=== PATIENT | female | born 1955 | race Caucasian/White ===

== ENCOUNTER 2019-11-21 09:17 | Outpatient (CLI) | payer BC, SELFPAY ==
--- NOTE | ~2019-11-21 | MM_ITS ---
EXAMINATION: MM screening [facility] BI w marlys HISTORY: Screening mammogram TECHNIQUE: Craniocaudal and mediolateral oblique 3-D tomosynthesis images were obtained and synthetic 2-D images were generated. CAD analysis was submitted and interpreted. COMPARISON: 12/03/2018, 11/30/2017, 11/17/2016 bilateral digital screening mammogram examinations BREAST PARENCHYMAL COMPOSITION: The breasts are extremely dense, which lowers the sensitivity of mamm ography. FINDINGS: There is no evidence of suspicious mass, calcification, or architectural distortion to sugg est malignancy in either breast. There has been no suspicious interval change. IMPRESSION: 1. No mammographic evidence of malignancy. 2. Recommend routine screening mammography in one year. BI-RADS Category 1: Negative Reviewed, dictated and finalized at location A. NSIC IDENTIFICATION SPECIALIST
== END 2019-11-21 09:18 | disposition home or self-care (01) ==
LOC: ANHIMG 09:25
DX: Z12.31 Encounter for screening mammogram for malignant neoplasm of breast (principal)
CPT/HCPCS: 77063; 77067

== ENCOUNTER 2020-12-03 07:08 | Outpatient (CLI) | payer BC, SELFPAY ==
--- NOTE | ~2020-12-03 | MM_ITS ---
EXAMINATION: MM screening [facility] BI w marlys HISTORY: Screening mammogram TECHNIQUE: Craniocaudal and mediolateral oblique 3-D tomosynthesis images were obtained and synthetic 2-D images were generated. CAD analysis was submitted and interpreted. COMPARISON: 11/21/2018, 11/22/2018, 11/30/2017 BREAST PARENCHYMAL COMPOSITION: The breasts are heterogeneously dense, which may obscure small masses . FINDINGS: RIGHT BREAST: There is no evidence of suspicious mass, calcification, or architectural distortion to suggest malignancy. There has been no significant interval change. LEFT BREAST: An asymmetry is present in the posterior third of the slightly upper breast 5.5 cm from the nipple on the mediolateral oblique view. IMPRESSION: 1. Left breast asymmetry on the mediolateral oblique view. 2. Additional mammographic views and possible breast ultrasound are recommended. BI-RADS Category 0: Incomplete: Needs additional imaging evaluation. Reviewed, dictated and finalized at location A. BONER IMPRESSION: 1. Left breast asymmetry on the mediolateral oblique view. 2. Additional mammographic views and possible breast ultrasound are recommended . BI-RADS Category 0: Incomplete: Needs additional imaging evaluation.
== END 2020-12-03 07:09 | disposition home or self-care (01) ==
PROVIDERS: Visit Provider Obstetrics & Gynecology
DX: Z12.31 Encounter for screening mammogram for malignant neoplasm of breast (principal); R92.8 Other abnormal and inconclusive findings on diagnostic imaging of breast
CPT/HCPCS: 77063; 77067

== ENCOUNTER → 2020-12-06 02:36 | Outpatient (CLI) | payer BC, SELFPAY ==
[2020-12-06 20:35] LABS: SARS-CoV-2 RNA PCR Negative
== END ==
PROVIDERS: Visit Provider Internal Medicine Gastroenterology
DX: Z01.812 Encounter for preprocedural laboratory examination (principal); Z20.822 Contact with and (suspected) exposure to COVID-19
CPT/HCPCS: C9803; U0003; U0005

== ENCOUNTER 2020-12-09 01:15 | Day surgery (SDC) | payer BC, SELFPAY ==
[2020-11-25 08:48] VITALS: BMI 19.6
--- NOTE | 2020-12-08 09:48 | P.PNAN_ITS ---
Anes - Initial Pre Proc Eval Procedure: Operation Date: 12/09/20 11:15 Proposed Procedures p Esophagogastroduodenoscopy - Alberto Layne MD Date/Time: 12/08/20 09:48 Surgeon: Alberto Layne MD Pre Op Diagnosis: NORA Patient Data Age: 64 Gender: F Height: 1.63 m Weight: 52 kg Allergies Allergy/AdvReac Type Severity Reaction Status Date / Time No Known Allergies Allergy Unverified 10/01/17 08:18 Home Medications Medication Instructions Recorded Confirmed Type No Home Medications 11/25/20 11/25/20 History Patient hx anesthesia problems: none Family hx anesthesia problems: none [facility] Social History Social History Smoking status: Never smoker Alcohol intake: never Substance use type: does not use Living arrangements: with family Spiritual care concerns: No Anes - Eval Final PreProcedure Day of Procedure 12/08/20 09:48 Patient weight: thin Heart: regular rate and rhythm Lungs: clear to auscultation and normal air movement Airway: Mallampati scale class II Neurological: alert and oriented Last oral intake: >/= 8 hours ASA classification: I Emergent: no Anesthetic plan: proceed Anesthesia type and monitoring: general GIVS and standard monitoring Informed Consent: The patient's anesthetic plan and its attendant risks and benefits were discussed with the patient/family/POA. Questions were solicited and answers provided to the satisfaction of the patient/family/POA.
[2020-12-09 10:08] VITALS: BP 162/74; PULSE 67; RESP 18; TEMP 36.6; O2SAT 99
[2020-12-09] MEDS: LACTATED RINGERS 1,000 ML 150 ML IV CONT (10:11)
--- NOTE | 2020-12-09 11:27 | PM.HPGS ---
History of Present Illness History of Present Illness Consent: Risks, benefits, and alternatives have been discussed and questions answered. Patient agrees to proceed with procedure. Chief complaint: NORA Narrative: Gunjan Riley is a 64 year old female with NORA, last colonoscopy 2016. Denies gib, not using blood thinners, denies upper gi symptoms. Review of Systems Constitutional: Constitutional: Denies headache(s) and Denies weakness Eyes: Eyes: Denies blurry vision ENT: Reports Normal hearing present, Denies headache(s) and Denies neck pain Cardiovascular: Cardiovascular: Denies chest pain and Denies dyspnea Respiratory: Respiratory: Denies dyspnea Gastrointestinal: Gastrointestinal: Reports no additional gastrointestinal complaints Genitourinary: Genitourinary: Denies dysuria Musculoskeletal: Musculoskeletal: Denies neck pain Integumentary/Breasts: Skin/Breast: Denies dry skin Neurologic: Reports Normal hearing present, Denies headache(s) and Denies weakness Psychiatric: Psychiatric: Denies anxiety Endocrine: Endocrine: Denies change in body appearance Hematologic/Lymphatic: Hematologic/Lymphatic: Denies easy bleeding Allergic/Immunologic: Allergic/Immunologic: Denies urticaria PMFSH Past Medical History Medical History (Updated 12/09/20 @ 11:28 by Alberto Layne MD) Iron deficiency anemia Social History Social History Smoking status: Never smoker Alcohol intake: never Substance use type: does not use Living arrangements: with family Spiritual care concerns: No Meds Home Medications and Allergies Home Medications Medication Instructions Recorded Confirmed Type No Home Medications 11/25/20 11/25/20 History Allergies Allergy/AdvReac Type Severity Reaction Status Date / Time No Known Allergies Allergy Unverified 10/01/17 08:18 Vital Signs Vital Signs - 24 hr 12/09/20 10:08 Temperature 97.9 F Pulse Rate 67 Respiratory Rate 18 Blood Pressure 162/74 H Pulse Oximetry 99 Exam Const: General: comfortable and no acute distress HENMT: General nose exam: Normal nares present Eyes: General: appearance normal, both eyes and all related structures Neck: Neck: no JVD Resp: Auscultation: clear to auscultation bilaterally Cardio: Rate: regular rate Rhythm: regular rhythm GI: Inspection: non-distended GI Palp: Yes Soft to palpation Skin: General skin exam: normal color Neuro: General: gait normal Speech: normal speech Extrem: General: normal to inspection Psych: Mental Status: mental status grossly normal Assessment and Plan Assessment and plan (1) Iron deficiency anemia: Code(s): D50.9 - Iron deficiency anemia, unspecified Status: Acute Assessment and Plan: egd with bx
[2020-12-09 11:42] VITALS: BP 101/57; PULSE 63; RESP 15; O2SAT 99
[2020-12-09 11:52] VITALS: BP 132/62; PULSE 66; RESP 14; O2SAT 99
[2020-12-09 12:02] VITALS: BP 148/69; PULSE 67; RESP 14; O2SAT 99
== END 2020-12-09 12:35 | disposition home or self-care (01) ==
PROVIDERS: PCP Internal Medicine Endocrinology, Diabetes & Metabolism; Visit Provider Internal Medicine Gastroenterology
PROC: 0DJ08ZZ Inspection of Upper Intestinal Tract, Via Natural or Artificial Opening Endoscopic (ICD-10-PCS; CPT 43235; principal; 2020-12-09 11:15)
DX: D50.9 Iron deficiency anemia, unspecified (principal); K29.70 Gastritis, unspecified, without bleeding
CPT/HCPCS: 43239; 87081; 88305; J2001; J2704; J7120

== ENCOUNTER 2020-12-30 13:46 | Outpatient (CLI) | payer BC, SELFPAY ==
--- NOTE | ~2020-12-30 | MM_ITS ---
EXAMINATION: MM diagnostic mammo unilat LT HISTORY: Follow-up left breast asymmetry TECHNIQUE: Additional 3-D tomosynthesis images of the left breast were performed and synthetic 2-D im ages were generated. CAD analysis was submitted and interpreted. COMPARISON: Comparison to multiple prior studies sequentially, with oldest reviewed study dated 03/2016. BREAST PARENCHYMAL COMPOSITION: The breasts are extremely dense, which lowers the sensitivity of mamm ography. FINDINGS: There are no suspicious masses, calcifications or architectural distortion in the left ranjith st to suggest malignancy. IMPRESSION: 1. No mammographic evidence for malignancy in the left breast. 2. Routine yearly screening mammogram and regular clinical breast examination are recommended. BI-RADS Category 1: Negative Reviewed, dictated and finalized at location A. IMPRESSION: 1. No mammographic evidence for malignancy in the left breast. 2. Routine yearly screening mammogram and regular clinical breast examination a re recommended. BI-RADS Category 1: Negative
== END 2020-12-30 13:47 | disposition home or self-care (01) ==
LOC: ANHIMG 14:01
PROVIDERS: Visit Provider Obstetrics & Gynecology
DX: R92.8 Other abnormal and inconclusive findings on diagnostic imaging of breast (principal)
CPT/HCPCS: 77065

== ENCOUNTER → 2021-02-11 01:54 | Outpatient (CLI) | payer BC, SELFPAY ==
[2021-02-11 19:16] LABS: SARS-CoV-2 RNA PCR Negative
== END ==
PROVIDERS: Visit Provider Internal Medicine Gastroenterology
DX: Z01.812 Encounter for preprocedural laboratory examination (principal); Z20.822 Contact with and (suspected) exposure to COVID-19
CPT/HCPCS: C9803; U0003; U0005

== ENCOUNTER 2021-02-15 01:28 | Day surgery (SDC) | payer BC, SELFPAY ==
[2021-02-03 12:49] VITALS: BMI 19.5
[2021-02-15 09:00] VITALS: BP 159/88; PULSE 69; RESP 16; TEMP 36.4; O2SAT 100
[2021-02-15] MEDS: LACTATED RINGERS 1,000 ML 150 ML IV CONT (09:03)
--- NOTE | 2021-02-15 09:26 | WPDANESEPPF ---
Anes - Initial Pre Proc Eval Procedure: Operation Date: 02/15/21 10:15 Proposed Procedures p Colonoscopy - Alberto Layne MD Date/Time: 02/15/21 09:26 Surgeon: Alberto Layne MD Pre Op Diagnosis: iron deficiency anemia Patient Data Age: 65 Gender: F Height: 5 ft 4 in Weight: 51.4 kg Last Vital Signs Temp 36.4 C L 02/15/21 09:00 Pulse 69 02/15/21 09:00 Resp 16 02/15/21 09:00 BP 159/88 H 02/15/21 09:00 Pulse Ox 100 02/15/21 09:00 Allergies Allergy/AdvReac Type Severity Reaction Status Date / Time No Known Allergies Allergy Verified 02/15/21 08:59 Home Medications Medication Instructions Recorded Confirmed Type No Home Medications 11/25/20 02/15/21 History Patient hx anesthesia problems: none Family hx anesthesia problems: none [facility] Past Medical History Medical History Iron deficiency anemia Social History Social History Smoking status: Never smoker Alcohol intake: current Substance use type: does not use Living arrangements: with family Gender identity (if verbalized by the patient): Female Spiritual care concerns: No Anes - Eval Final PreProcedure Day of Procedure 02/15/21 09:26 Patient weight: normal Heart: regular rate and rhythm Lungs: clear to auscultation Airway: Mallampati scale class II Neurological: alert and oriented Last oral intake: >/= 8 hours ASA classification: I Emergent: no Anesthetic plan: proceed Anesthesia type and monitoring: general GIVS and standard monitoring Informed Consent: The patient's anesthetic plan and its attendant risks and benefits were discussed with the patient/family/POA. Questions were solicited and answers provided to the satisfaction of the patient/family/POA.
--- NOTE | 2021-02-15 09:31 | PM.HPGS ---
History of Present Illness History of Present Illness Consent: Risks, benefits, and alternatives have been discussed and questions answered. Patient agrees to proceed with procedure. Chief complaint: iron deficiency anemia Narrative: Gunjan Riley is a 65 year old female with naldo, egd 11/2020 no major findings (only mild gastritis), 3 weeks had capsule endoscopy at [facility] and negative, here for colonoscopy (last one 2016) Review of Systems Constitutional: Constitutional: Denies headache(s) and Denies weakness Eyes: Eyes: Denies blurry vision ENT: Reports Normal hearing present, Denies headache(s) and Denies neck pain Cardiovascular: Cardiovascular: Denies chest pain and Denies dyspnea Respiratory: Respiratory: Denies dyspnea Gastrointestinal: Gastrointestinal: Reports no additional gastrointestinal complaints Genitourinary: Genitourinary: Denies dysuria Musculoskeletal: Musculoskeletal: Denies neck pain Integumentary/Breasts: Skin/Breast: Denies dry skin Neurologic: Reports Normal hearing present, Denies headache(s) and Denies weakness Psychiatric: Psychiatric: Denies anxiety Endocrine: Endocrine: Denies change in body appearance Hematologic/Lymphatic: Hematologic/Lymphatic: Denies easy bleeding Allergic/Immunologic: Allergic/Immunologic: Denies urticaria PMFSH Past Medical History Medical History Iron deficiency anemia Social History Social History Smoking status: Never smoker Alcohol intake: current Substance use type: does not use Living arrangements: with family Gender identity (if verbalized by the patient): Female Spiritual care concerns: No Meds Home Medications and Allergies Home Medications Medication Instructions Recorded Confirmed Type No Home Medications 11/25/20 02/15/21 History Allergies Allergy/AdvReac Type Severity Reaction Status Date / Time No Known Allergies Allergy Verified 02/15/21 08:59 Vital Signs Vital Signs - 24 hr 02/15/21 09:00 Temperature 97.5 F L Pulse Rate 69 Respiratory Rate 16 Blood Pressure 159/88 H Pulse Oximetry 100 Exam Const: General: comfortable and no acute distress HENMT: General nose exam: Normal nares present Eyes: General: appearance normal, both eyes and all related structures Neck: Neck: no JVD Resp: Auscultation: clear to auscultation bilaterally Cardio: Rate: regular rate Rhythm: regular rhythm GI: Inspection: non-distended GI Palp: Yes Soft to palpation Skin: General skin exam: normal color Neuro: General: gait normal Speech: normal speech Extrem: General: normal to inspection Psych: Mental Status: mental status grossly normal Assessment and Plan Assessment and plan (1) Iron deficiency anemia: Code(s): D50.9 - Iron deficiency anemia, unspecified Status: Acute Assessment and Plan: on iron pills, colonoscopy today
[2021-02-15 09:55] VITALS: BP 104/54; PULSE 74; RESP 18; O2SAT 100
[2021-02-15 10:05] VITALS: BP 122/66; PULSE 72; RESP 18; O2SAT 100
[2021-02-15 10:15] VITALS: BP 112/60; PULSE 72; RESP 16; O2SAT 100
== END 2021-02-15 10:45 | disposition home or self-care (01) ==
PROVIDERS: Visit Provider Internal Medicine Gastroenterology
PROC: 0DJD8ZZ Inspection of Lower Intestinal Tract, Via Natural or Artificial Opening Endoscopic (ICD-10-PCS; CPT 45378; principal; 2021-02-15 10:15)
DX: D50.9 Iron deficiency anemia, unspecified (principal); D12.3 Benign neoplasm of transverse colon; D12.2 Benign neoplasm of ascending colon; K64.8 Other hemorrhoids
CPT/HCPCS: 45385; 88305; J2704; J7120

== ENCOUNTER 2021-12-16 07:14 | Outpatient (CLI) | payer BC, SELFPAY ==
--- NOTE | ~2021-12-16 | MM_ITS ---
EXAMINATION: MM screening [facility] BI w marlys HISTORY: Screening TECHNIQUE: Craniocaudal and mediolateral oblique 3-D tomosynthesis images were obtained and synthetic 2-D images were generated. CAD analysis was submitted and interpreted. COMPARISON: Comparison to multiple prior studies sequentially, with oldest reviewed study dated 01/2017. BREAST PARENCHYMAL COMPOSITION: The breasts are extremely dense, which lowers the sensitivity of mamm ography. FINDINGS: There is no evidence of suspicious mass, calcification, or architectural distortion to sugg est malignancy in either breast. There has been no suspicious interval change. IMPRESSION: 1. No mammographic evidence of malignancy. 2. Recommend routine screening mammography in one year. BI-RADS Category 1: Negative Reviewed, dictated and finalized at location A. NEERING PROJECT MANAGER
== END 2021-12-16 07:15 | disposition home or self-care (01) ==
LOC: ANHIMG 07:16
PROVIDERS: Visit Provider Obstetrics & Gynecology
DX: Z12.31 Encounter for screening mammogram for malignant neoplasm of breast (principal)
CPT/HCPCS: 77063; 77067

== ENCOUNTER 2023-01-26 07:16 | Outpatient (CLI) | payer BC, SELFPAY ==
--- NOTE | ~2023-01-26 | MM_ITS ---
EXAMINATION: MM screening [facility] BI w marlys HISTORY: Screening mammogram TECHNIQUE: Craniocaudal and mediolateral oblique 3-D tomosynthesis images were obtained and synthetic 2-D images were generated. CAD analysis was submitted and interpreted. COMPARISON: 12/16/2021, 12/30/2020, 12/03/2020 BREAST PARENCHYMAL COMPOSITION: The breasts are heterogeneously dense, which may obscure small masses . FINDINGS: No suspicious mass, calcification, or architectural distortion are identified in either seth ast to suggest malignancy. There has been no suspicious interval change. IMPRESSION: 1. No mammographic evidence of malignancy. 2. Recommend routine screening mammography in one year. BI-RADS Category 1: Negative Reviewed, dictated and finalized at location A.
== END 2023-01-26 07:17 | disposition home or self-care (01) ==
PROVIDERS: Visit Provider Obstetrics & Gynecology
DX: Z12.31 Encounter for screening mammogram for malignant neoplasm of breast (principal)
CPT/HCPCS: 77063; 77067

== ENCOUNTER 2024-03-16 15:29 | Outpatient (CLI) | payer BC, SELFPAY ==
--- NOTE | ~2024-03-16 | MM_ITS ---
EXAMINATION: MM screening [facility] BI w marlys HISTORY: Screening TECHNIQUE: Craniocaudal and mediolateral oblique 3-D tomosynthesis images were obtained and synthetic 2-D images were generated. CAD analysis was submitted and interpreted. COMPARISON: Comparison to multiple prior studies sequentially, with oldest reviewed study dated 2018. BREAST PARENCHYMAL COMPOSITION: Dense: The breasts are heterogeneously dense, which may obscure small masses FINDINGS: There is no evidence of suspicious mass, calcification, or architectural distortion to sugg est malignancy in either breast. There has been no suspicious interval change. IMPRESSION: 1. No mammographic evidence of malignancy. 2. Recommend routine screening mammography in one year. BI-RADS Category 1: Negative Reviewed, dictated and finalized at location B.
== END 2024-03-16 15:30 | disposition home or self-care (01) ==
LOC: ANHIMG 15:37
PROVIDERS: PCP Internal Medicine Infectious Disease; Visit Provider Obstetrics & Gynecology
DX: Z12.31 Encounter for screening mammogram for malignant neoplasm of breast (principal)
CPT/HCPCS: 77063; 77067

== ENCOUNTER 2025-04-22 16:03 | Outpatient (CLI) | payer BC, SELFPAY ==
--- NOTE | ~2025-04-22 | MM_ITS ---
EXAMINATION: MM screening [facility] BI w marlys HISTORY: Screening mammogram TECHNIQUE: Craniocaudal and mediolateral oblique 3-D tomosynthesis images were obtained and synthetic 2-D images were generated. CAD analysis was submitted and interpreted. COMPARISON: 03/16/2024, 01/26/2023, 12/16/2021, 12/30/2020 BREAST PARENCHYMAL COMPOSITION:Dense: The breasts are extremely dense, which lowers the sensitivity o f mammography. FINDINGS: No suspicious mass, calcification, or architectural distortion are identified in either seth ast to suggest malignancy. There has been no suspicious interval change. IMPRESSION: No mammographic evidence of malignancy. Recommend routine screening mammography in one year. BI-RADS Category 1: Negative Reviewed, dictated and finalized at location .
--- OUTSIDE RECORDS SUMMARY | 2025-04-22 16:17 | XMS_ITS | Encounter Summary ---
Author Organization [facility] Healthcare Address [address] [place] [address] Care Team Providers Care Educational Assistant Teacher Name Role Phone Niels Desai MD Primary Care Provider [phone] Sonya Burns MD Unavailable [phone] Ericka Ibrahim MD Unavailable [phone] Encounter Details Date Type Department Care Team (Late st Contact Info) Description 03/26/2025 Telephone [facility] [address] [place] [address] Niels Desai MD [address] [facility] [address] [place] [address] Social History Tobacco Use Types Packs/Day Years Used Date Smoking Tobacco: Never Smokeless Tobacco: Never Alcohol Use Standard Drinks/Week Comments Yes 0 (1 standard drink = 0.6 oz pur e alcohol) AUDIT-C Answer Date Recorded Q1: How often do you have a drink containing alc ohol? Monthly or less 05/16/2023 Q2: How many drinks containi ng alcohol do you have on a typical day when you are drinking? 1 or 2 05/16/2023 Q3: How often do you have si x or more drinks on one occasion? 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 Gender Identity Not on file Sexual Orientation Not on file Occupation Industry Job Start Date Job End Date [employer] Not on file Not on file Not on file documented as of this encounter Ordered Prescriptions Prescription Sig Dispense Quantity Refills Last Filled Start Date End Date NIFEdipine (NIFEdipine XL) 60 mg 24 hr tabletIndications:A ccelerated hypertension Take 1 tablet (60 mg total) by mouth daily 90 tablet 3 03/26/2025 documented in this encounter Miscellaneous Notes * Telephone Encounter - Niels Desai MD - 03/26/2025 5:23 PM CDT See patient's Dimple [employer] message regarding refill for nifedipine XL 60 mg daily, 90 tablets, one daily. Sent to her pharmacy. documented in this encounter Plan of Treatment Not on file documented as of this encounter Visit Diagnoses Diagnosis Accelerated hypertension Essential hypertension, malignant documented in this encounter Discontinued Medications Medication Sig Discontinue Reason Start Date End Da te NIFEdipine (NIFEdipine XL) 60 mg 24 hr tabletIndications:Acceler ated hypertension Take 1 tablet (60 mg total) by mouth daily Reorder 02/26/2025 03/26/2025 documented as of this encounter Care Teams Educational Assistant Teacher Relationship Specialty Start Date End Date Niels Desai MD [address] [place] [address] [place] [id number] PCP - General Internal Medicine 05/02/23 Sonya Burns MD [address] [facility] [address] [place] [address] Consulting Physician Obstetrics and Gynecology 09/25/13 Ericka Ibrahim MD [address] [facility] [address] [place] [address] Consulting Physician Dermatology 07/14/19 documented as of this encounter
--- OUTSIDE RECORDS SUMMARY | 2025-04-22 16:17 | XMS_ITS | Clinical Summary ---
Author Organization [facility] Address [address] [place] [address] Care Team Providers Care Engineer Byproduct Name Role Phone Unavailable Primary Care Provider Unavailabl e Social History Tobacco Use Types Packs/Day Years Used Date Smoking Tobacco: Never Assessed Comments Unknown Sex and Gender Information Value Date Recorded Sex Assigned at Not on file Legal Sex Female 8:15 PM CDT Gender Identity Not on file Sexual Orientation Not on file Plan of Treatment Health Maintenance Due Date Last Done Comments Colorectal Cancer Screening Colonoscopy (10 Years) 1956 Hepatitis C 1974 DTaP, Tdap and Td Vaccines ( 1 - Tdap) 12/14/1975 Mammogram Screening 1996 Pneumococcal Vaccine: 50+ Ye ars (1 of 1 - PCV) 2006 Zoster Vaccines (1 of 2) 2006 Dexa Scan (General) 2021 COVID-19 Vaccine (2023-2 5 season) 2024 RSV Immunization or 60+ Years (1 - 1-dose 75+ series) 12/14/2031 Meningococcal B Vaccine Aged Out No l onger eligible based on patient's age to complete this topic Meningococcal Vaccine Aged Out No yony yoel eligible based on patient's age to complete this topic RSV Immunizations Under 20 Months Aged Out No longer eligible based on patient's age to complete this topic
--- OUTSIDE RECORDS SUMMARY | 2025-04-22 16:17 | XMS_ITS | Referral Summary ---
Author Organization [facility] Address [address] [place] [address] Care Team Providers Care Business Operations Coordinator Name Role Phone Chandler Goldman MD Primary Care Provider [phone] Sonya Burns MD Unavailable Ericka Ibrahim MD Unavailable [phone] Encounters Date Type Department Care Team Description 03/26/2025 Telephone [facility] [address] [place] [address] Chandler Goldman MD 03/19/2025 Results Follow-Up [facility] [address] [place] [address] Chandler Goldman MD Transthoracic Echo (TTE) Complete W Doppler/CF 03/19/2025 6:55 AM CDT - 03/19/2025 11:59 PM CDT Hospital Encounter [facility] [address] [place] [id number] Nonrheumatic mitral valve regurgitation Discharge Disposition: Discharge to home or self care 03/09/2025 Telephone [facility] [address] [place] [address] Sarah Suárez, RN 03/07/2025 Results Follow-Up [facility] [address] [place] [address] Chandler Goldman MD Renal Limited Including Duplex Doppler Bilateral Complete (C) 03/05/2025 1:14 PM CDT - 03/05/2025 11:59 PM CDT Hospital Encounter [facility] ([facility]) [address] [place] [id number] Accelerated hypertension; Abdominal bruit Discharge Disposition: Discharge to home or self care 03/04/2025 Telephone [facility] [address] [place] [address] Chandler Goldman MD 02/26/2025 Telephone [facility] [address] [place] [address] Chandler Goldman MD 02/24/2025 11:30 AM CDT Office Visit [facility] [address] [place] [address] Chandler Goldman MD Accelerated hypertension (Primary Dx); White coat syndrome without diagnosis of hypertension; Abdominal bruit 02/22/2025 Telephone [facility] [address] [place] [address] Chandler Goldman MD 01/22/2025 2:59 PM CDT - 01/22/2025 11:59 PM CDT Hospital Encounter [facility] [address] [place] [address] [address] [place] [address] Screening for osteoporosis; Post-menopausal Discharge Disposition: Discharge to home or self care from Last 3 Months Allergies No known active allergies Medications cholecalciferol (VITAMIN D3) 2,000 unit tablet 0 0 4 Active ascorbic acid (VITAMIN C) 1,000 mg tablet Acti ve vitamins A,C,G-elwg-urpqa r (ICAPS) [id number] vlvy-bu-fukj capsule Take by mouth Active zinc 50 mg tablet Take by mouth Active iron, carbonyl (FEOSOL) 45 mg tablet Take 0.283 tablets (45 mg total) by mouth daily Active diclofenac sodium 1.5 % dropsIndications :Osteoarthritis Apply 3-5 drops topically daily as needed (Joint pain) 150 mL 1 3 Active NIFEdipine (NIFEdipine XL) 60 mg 24 hr tabletIndication s:Accelerated hypertension Take 1 tablet (60 mg total) by mouth daily 90 tablet 3 5 Active NIFEdipine (NIFEdipine XL) 60 mg 24 hr tabletIndication s:Accelerated hypertension Take 1 tablet (60 mg total) by mouth daily 30 tablet 5 5 03/26/20 25 Discontin ued(Reord er) Active Problems Problem Noted Date Diagnosed Date Nonrheumatic mitral valve regurgitation 03/09/20 25 Overview (03/09/2025): Dates and details lacking. Accelerated hypertension 02/24/2025 Assessment & Plan (02/28/2025 4:41 PM CDT): New problem as of a day or two ago, she reports that blood pressure during a visit to occupational health for respiratory fit testing was 180 systolic. They referred her to our office to get things under control. She does have a history of white coat hypertension, see discussion elsewhere, but lately has noticed that blood pressure in general has been creeping up at home on her own blood pressure readings. There was also concern about possible renal artery bruit audible at her occupational health visit. She reports having renal artery Dopplers nearly 10 years ago in 2014 and was able to access the report in her MyChart, even though it does not appear in the current EMR application. At that time there was no evidence of renal artery stenosis. On exam, she does have a faint bruit in the mid to upper abdomen, very short. It is probably due to turbulent flow through the aorta. On auscultation of the back, no renal artery bruits are audible. We ordered follow-up renal artery Dopplers to re-evaluate. Blood pressure readings in the office are moderately to severely elevated, initially 170/84. On my reading in each arm blood pressure is 220/100. She denies chest pain or pressure. Lungs are clear. Heart rhythm is regular with no murmur. There is no edema in her legs. We gave her clonidine 0.1 mg p.o. and after 20 minutes, blood pressure was about 190/100. After another 20 minutes, blood pressure was 166/78. The patient had no reported side effects from the clonidine. We recommended that she start nifedipine XL 30 mg daily and monitor blood pressure at home. Call in two days with readings. Low bone density 01/22/2025 Assessment & Plan (02/24/2025 5:55 AM CDT): Chronic, present for 6-7 years. Recommend continuing vitamin-D supplement and getting adequate calcium in her diet. FRAX score on most recent DEXA from about one month ago is 11% and 2.1% for major osteoporotic fracture and hip fracture respectively. Positive ALFREDO (antinuclear antibody) 10/02/2024 Assessment & Plan (11/08/2024 4:50 AM RECORD TESTER): New finding as of about a month ago, uncertain significance. She has a low titer positive ALFREDO with a speckled pattern. Anti double-stranded DNA is negative. She has no symptoms suggestive of autoimmunity, but did have a low WBC, so there could be a connection there. We ordered a follow-up CBC to be done in about a month. Lab Results Component Value Date ALFREDO POSITIVE (A) 10/02/2024 ALFREDO 1:80 (H) 10/02/2024 ALFREDO pattern Speckled Macrocytosis without anemia 09/16/2024 Assessment & Plan (11/08/2024 4:49 AM RECORD TESTER): New finding as of about a month ago on routine labs. The cause and significance are undetermined. She denies significant alcohol use. There are no other known toxin exposures. It could be a transient abnormality or something related to nutritional deficiency or a low-grade bone marrow disorder. For now we are planning to monitor with periodic labs to see if there is persistence or progression. Lab Results Component Value Date WBC 3.4 (L) 10/02/2024 HGB 13.9 10/02/2024 HCT 40.9 10/02/2024 MCV 100.5 (H) 10/02/2024 LABPLAT 250 10/02/2024 Lab Results Component Value Date VITB12 419 10/02/2024 Lab Results Component Value Date TSH 2.68 09/16/2024 Lab Results Component Value Date ALT 16 09/16/2024 AST 18 09/16/2024 ALKPHOS 77 09/16/2024 BILITOT 0.5 09/16/2024 Assessment & Plan (09/28/2024 5:06 PM RECORD TESTER): New finding as of recent labs, uncertain cause or significance. Hemoglobin is well within normal limits. TSH was normal. She denies alcohol use for at least two years. We ordered a B12 level. Other evaluation may be appropriate. Abnormal gamma globulin level 09/16/2024 Overview (09/28/2024): Borderline low. Assessment & Plan (11/08/2024 4:48 AM RECORD TESTER): New finding as of about six weeks ago, the globulin fraction on a CMP was low, uncertain cause or significance. We ordered quantitative immunoglobulins which were normal (IgG, IgA, IgM). We ordered a follow-up comprehensive panel to be done in about one month to see if there are any trends. Assessment & Plan (09/28/2024 5:04 PM RECORD TESTER): New finding as of recent lab work, uncertain cause and significance. We ordered quantitative immunoglobulins to start with. A serum protein electrophoresis may also be appropriate. Return early as needed depending on findings. Leukopenia 09/16/2024 Assessment & Plan (10/30/2024 4:46 PM RECORD TESTER): New finding as of about six weeks ago, confirmed on repeat CBC. She had a positive ALFREDO 1:80 speckled, significance not determined. We ordered a follow-up CBC to be done in about one month to see the abnormalities are transient, possibly related to a sinus infection that she had in August about a month before the CBC was drawn. Assessment & Plan (10/03/2024 6:40 AM RECORD TESTER): New finding as of recent lab work. Uncertain cause or significance. It could be due to a transient viral infection, autoimmunity, bone marrow disorder, or other causes. She has a mild to moderate facial rubor. We ordered a repeat CBC and an ALFREDO screen. Return early as needed. Enlargement of right sternoclavicular joint 06/14 Overview (09/25/2023): Sternoclavicular dislocation/subluxation per patient's orthopedic surgeon. Assessment & Plan (09/25/2023 5:49 PM RECORD TESTER): She saw her orthopedic surgeon who diagnosed a dislocation/subluxation of the right sternoclavicular joint. It is asymptomatic and unchanged. Orthopedics did not recommend any intervention. We will monitor clinically. Assessment & Plan (07/18/2023 3:22 PM CDT): She first noticed some swelling in the right sternoclavicular joint about three weeks ago. There is no recent history of injury. She has no discomfort in this area. Exam shows no deformity, warmth or crepitus with movement. The joint appears to be mildly hypertrophied. There is moderate associated soft tissue swelling, but no redness or tenderness. We ordered imaging including plain x-ray and ultrasound. Return early as needed. Multiple benign melanocytic nevi of upper and lower extremities and trunk 04/13/2022 Basal cell carcinoma (BCC) of right lower leg Overview (05/03/2023): Actinic keratosis, right lateral lower leg and basal cell carcinoma, right medial lower leg, both excised. Seborrheic keratosis 04/13/2022 Solar lentiginosis 04/13/2022 Telangiectasia 04/13/2022 CKD (chronic kidney disease) stage 2, GFR 60-89 ml/min 04/13/2020 Overview (05/03/2023): Upper limit of normal to mildly elevated creatinine, eGFR 60-80 mL/minute. Assessment & Plan (09/25/2023 5:48 PM RECORD TESTER): Kidney function is stable. We will see her back annually, or sooner if needed. Lab Results Component Value Date GLUCOSE 80 09/13/2023 CALCIUM 9.4 09/13/2023 SODIUM 141 09/13/2023 POTASSIUM 4.6 09/13/2023 CO2 28 09/13/2023 CHLORIDE 104 09/13/2023 BUNSER 23 09/13/2023 CREATININE 0.90 09/13/2023 Assessment & Plan (05/18/2023 1:31 PM CDT): A borderline to mildly elevated creatinine has been noted for many years. Estimated GFR is 60 80 mL/minute. We will continue to monitor with periodic labs. Consider additional evaluation as needed, but she has had considerable previous workup including urinalysis last year, multiple imaging studies of the abdomen/pelvis in relation to ovarian cyst and presacral schwannoma, so there is no urgent need for additional evaluation at this time. White coat syndrome without diagnosis of hyperte nsion 04/13/2020 Assessment & Plan (02/24/2025 5:22 PM CDT): Chronic, present for about five years, possibly contributing to the current accelerated hypertension. In the past, home blood pressure readings have been acceptable, but more recently home blood pressure readings have been borderline to mildly elevated. We recommended a trial of a beta-halle which she declines because it will interfere with exercise tolerance. In the past, she took amlodipine but it did not work at a 10 mg dose, so we sent in nifedipine XL, 30 mg daily and asked her to call us in two days with blood pressure readings. Assessment & Plan (09/28/2024 5:08 PM RECORD TESTER): Chronic, present for over four years. She brought in blood pressure readings from home which are well within normal limits. We will continue to monitor without specific intervention. Assessment & Plan (09/25/2023 5:51 PM RECORD TESTER): Blood pressure is in a good range. She stays very active, runs regularly. Recent labs are stable. We will see her back annually. Lab Results Component Value Date CHOL 172 09/13/2023 Lab Results Component Value Date HDL 84 09/13/2023 Lab Results Component Value Date LDL 72 09/13/2023 Lab Results Component Value Date TRIG 80 09/13/2023 Lab Results Component Value Date GLUCOSE 80 09/13/2023 CALCIUM 9.4 09/13/2023 SODIUM 141 09/13/2023 POTASSIUM 4.6 09/13/2023 CO2 28 09/13/2023 CHLORIDE 104 09/13/2023 BUNSER 23 09/13/2023 CREATININE 0.90 09/13/2023 Lab Results Component Value Date ALT 17 09/13/2023 AST 18 09/13/2023 ALKPHOS 70 09/13/2023 BILITOT 0.3 09/13/2023 Assessment & Plan (05/03/2023 6:02 PM CDT): She gets anxious coming to doctors. Initial systolic blood pressure in the office today was moderately elevated, but she checks blood pressure regularly at home and typically gets between 110-125 mm Hg systolic over 60-70 mm Hg diastolic which is certainly acceptable. Osteoarthrosis 10/01/2014 Overview (12/08/2021): Osteoarthritis Osteoarthritis Assessment & Plan (09/25/2023 5:50 PM RECORD TESTER): Mostly she has left knee pain from a prior injury. She rubs diclofenac drops on the knee a few times a month which keeps things under control. Seasonal allergies 03/18/2013 Overview (05/03/2023): Takes OTC nonsedating antihistamines as needed. Assessment & Plan (05/03/2023 6:01 PM CDT): She has mild seasonal allergies that responds well to OTC antihistamines taken as needed. 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 Assessment & Plan (09/28/2024 5:07 PM RECORD TESTER): Chronic, present for more than 10 years, monitored with periodic imaging. She reports that her last MRI was stable. She will keep her followups with her specialists. Assessment & Plan (09/25/2023 5:50 PM RECORD TESTER): The presacral schwannoma was stable as of recent imaging. Her neurologist plans to see her back in a year. 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 Fibrocystic breast disease (FCBD) 09/12/2000 Resolved Problems Problem Noted Date Diagnosed Date Resolved Date Upper respiratory infection 08/04/2024 10/30/2024 Overview (10/30/2024): Empirically treated with Z-Gaston per patient request. Verruca vulgaris 10/03/2011 05/03/2023 Overview (05/03/2023): Treated by her franchise broker. Microscopic hematuria 10/12/20082022 Overview (05/03/2023): Runner's hematuria, resolved with lower mileage. 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 Patient is unaware of any such history. Mitral valve disorder 09/15/20012022 Overview (05/03/2023): Had an echo, had mitral valve prolapse, details lacking. Since then no one heard anything. Other depressive disorder 05/22/2001 Overview (05/03/2023): Patient denies. Immunizations Immunization Administration Dates Next Due Flucelvax Influenza Quad 10/03/2017 Hep A / Hep B 02/22/2012,08/31/2011,01/15/2011 Influenza, Quad, Adjuvantate d, Intramuscular 07/28/2023,08/04/2022 Influenza, Quadrivalent, Rec ombinant, Egg Free, Preservative Free, Intramuscular 08/20/2021 Influenza, Quadrivalent, Spl it, Preservative Free, Intramuscular 08/12/2020 Influenza, Trivalent, High D ose, Split, Preservative Free, Intramuscular 08/23/2024 Influenza, Trivalent, IM (MDV) 07/24/2014,2012,10/20/2012 Influenza, Trivalent, Preser vative Free, Intramuscular 07/29/2016,08/14/2015 Influenza, Unspecified 07/28/2023 MMR 12/26/2024 Pneumococcal Conjugate Pcv20 05/03/2023 Polio, Unspecified 01/15/2011 Sars-cov-2 Covid-19 Mrna, Bi valent, Original/marbella Ba.1, A 07/28/2023 Tdap 05/03/2023 ZOSTER Recombinant 10/16/2023,08/04/2023, 023 Social History Tobacco Use Types Packs/Day Years Used Date Smoking Tobacco: Never Smokeless Tobacco: Never Tobacco Cessation:Counseling Given: Not Answered Alcohol Use Standard Drinks/Week Comments Yes 0 [...] on file Legal Sex Female 1:12 AM RECORD TESTER Gender Identity Not on file Sexual Orientation Not on file 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 Not on file Not on file Not on file Last Filed Vital Signs Vital Sign Reading Time Taken Comments Blood Pressure 170/84 02/24/2025 11:22 AM CDT Pulse 81 02/24/2025 11:22 AM CDT Temperature 36.5 C (97.7 F) 02/24/2025 11:22 AM CDT Respiratory Rate 16 02/24/2025 11:22 AM CDT Oxygen Saturation 99% 02/24/2025 11:22 AM CDT Inhaled Oxygen Concentration - - Weight 52.3 kg (115 lb 6.4 oz) 02/24/2025 11:22 AM CDT Height 162.6 cm (5' 4.02) 02/24/2025 11:22 AM C DT Body Mass Index 19.8 02/24/2025 11:22 AM CDT Plan of Treatment Not on file Procedures Procedure Name Priority Date/Time Associated Diagnosis Comments TRANSTHORACIC ECHO (TTE) COMPLETE W DOPPLER/CF WO CONTRAST Routine 03/19/2025 7:54 AM CDT Nonrheumatic mitral valve regurgitation US RENAL LIMITED INCLUDING DUPLEX DOPPLER BILATERAL COMPLETE (C) Schedule Routine, Read Routine (OP Routine) 03/05/2025 2:39 PM CDT Accelerated hypertension Abdominal bruit DEXA AXIAL SKELETON BONE DENSITY 1 OR MORE SITES Schedule Routine, Read Routine (OP Routine) 01/22/2025 3:23 PM CDT Screening for osteoporosis Post-menopausal HEPATITIS C ANTIBODY Routine 10/02/2024 6:58 AM RECORD TESTER Need for hepatitis C screening test HM MAMMOGRAPHY Routine 01/26/2023 from Last 3 Months or Most Recently Relevant to Health Maintenance Results * TRANSTHORACIC ECHO (TTE) COMPLETE W DOPPLER/CF WO CONTRAST (03/19/2025 7:54 AM CDT) EF Mod BP 64 % CONS SCIMAGE Anatomical Region Laterality Modality Ultrasound 03/19/2025 7:01 AM CDT Narrative 03/19/2025 8:22 AM CDT [facility] [place] [address] Transthoracic Echocardiographic Report Patient Name: KOMAL RILEYA Chandni : 1955 (69y 3m) Gender: F Study Date: 03/19/2025 07:01:01 AM Ht(Inch): 64 Wt(Lb): 115.08 BSA: 1.54 Sink Cutter: KAYDEN Flaherty RDCS Location: [facility] Order Provider: CHANDLER GOLDMAN Heart Rate: 69 BMI: 19.75 BP: 146 / 60 Ref Provider: CHANDLER GOLDMAN PROCEDURES: Echocardiographic Report: Transthoracic complete echo with strain imaging, 2D, spectral and tissue Doppler, color flow Doppler, M-mode. INDICATIONS: I34.0 Nonrheumatic mitral (valve) insufficiency. CONCLUSIONS: 1. Normal left ventricular size based on volume index. Normal LV wall thickness. Normal left ventricular systolic function. The Ejection Fraction (Dacosta's) is measured at 64 %. Normal diastolic function. The average global longitudinal strain is normal. 2. Normal right ventricular size. Normal right ventricular systolic function. TV S'=0.13 m/s (normal function). 3. Mild anterior leaflet MVP with MR. 4. The estimated pulmonary artery systolic pressure is 20.0 mmHg. No pulm HTN. ATTESTATION: I have personally reviewed and interpreted this study without fellow or resident. - DISCLAIMER: The study images and the final report will be retained in the patient chart by the Echo Laboratory for the legally required time period. This chart constitutes the legal record of any testing performed. FINDINGS: Left Ventricle: Normal left ventricular size based on volume index. Normal LV wall thickness. Normal left ventricular systolic function. The Ejection Fraction (Dacosta's) is measured at 64 %. Normal diastolic function. The average global longitudinal strain is normal. The LV global strain is: -22.0 %. Right Ventricle: Normal right ventricular size. Normal right ventricular systolic function. TV S'=0.13 m/s (normal function). Left Atrium: The left atrium is normal in size. Right Atrium: The right atrium is normal in size. Mitral Valve: Normal mitral valve structure. The mean transmitral gradient is: 1 mmHg. Mild anterior leaflet MVP with MR. Aortic Valve: Normal trileaflet aortic valve. No aortic regurgitation. The mean transaortic gradient is 6 mmHg. The aortic valve area by the continuity equation (using VTI) is 2.32 cm2. Aortic valve dimensionless index is 0.89. Tricuspid Valve: Normal tricuspid valve structure. Mild tricuspid regurgitation. The estimated pulmonary artery systolic pressure is 20.0 mmHg. No pulm HTN. Pulmonic Valve: Normal pulmonic valve structure. No pulmonic regurgitation. Pericardium: Normal pericardium without pericardial effusion. Aorta: Normal aortic root. Normal aortic root size at sinuses of Valsalva. Normal aortic root size when indexed. The ascending aorta is normal in size when indexed. IVC: IVC is normal in size. MEASUREMENTS: 2D/MM Value Range Doppler Value Range LVIDd 2D 4.27 cm [ 3.80 - 5.20 ] AV Peak Henry 1.7 m/s [ 1.0 - 1.7 ] LVIDs 2D 1.95 cm [ 2.20 - 3.50 ] AV Peak PG 11.56 mmHg IVSd 2D 0.80 cm [ 0.60 - 0.90 ] AV Mean PG 6 mmHg LVPWd 2D 0.84 cm [ 0.60 - 0.90 ] AV VTI 32.7 cm LV Thickness Ratio 1.0 LVOT Peak Henry 1.6 m/s [ 0.7 - 1.1 ] LV FS 2D 54.28 % [ 27.00 - 45.00 ] LVOT Peak PG 10.24 mmHg LV Mass 2D 110.06 g LVOT Mean PG 5 mmHg LV Mass Index 2D 71.47 g/m2 LVOT VTI 29.2 cm RWT 0.39 LVOT Diam 1.82 cm EDV Mod BP 65.84 ml [ 46.00 - 106.00 ] MAGDALENO VTI 2.32 cm2 LV EDV Index 42.75 ml/m2 LVOT/AV VTI 0.89 - Dimensionless index (DVI) ESV Mod BP 23.44 ml [ 14.00 - 42.00 ] MV E Peak Henry 0.8 m/s [ 0.6 - 1.3 ] EF Mod BP 64 % [ 54 - 74 ] MV A Peak Henry 0.7 m/s [ 1.0 - 1.2 ] LV GLS -22.0 % [ -25.0 - -18.0 ] MV E/A 1.2 ratio [ 0.8 - 1.5 ] LA Length 4C 5.28 cm MV Peak Henry 0.9 m/s LA Length 2C 4.62 cm MV Peak PG 3.24 mmHg LA Volume BP 51.66 ml MV Mean PG 1 mmHg LA Volume Index 33.55 ml/m2 [ 16.00 - 34.00 ] MV VTI 25.4 cm RV Base Dimen 2D 3.0 cm [ 2.5 - 4.2 ] MV Decel Time 207.47 msec [ 104.00 - 258.00 ] TAPSE 2.09 cm [ 1.71 - 5.00 ] Med E` Henry 9.2 cm/sec [ 8.0 - 25.0 ] RA Volume 25.00 ml Lat E` Henry 8.8 cm/sec [ 10.0 - 25.0 ] RA Volume Index 16.23 ml/m2 Average E/E` 8.89 AoR Diam 2D 2.72 cm [ 2.70 - 3.70 ] RV S` 13.39 cm/sec Ao Root Index 1.77 cm/m2 [ 1.00 - 2.00 ] PV Peak Henry 1.4 m/s [ 0.4 - 0.8 ] Asc Ao Diam 2D 2.66 cm PV Peak PG 7.84 mmHg Asc Ao Index 1.73 cm/m2 Electronically Signed By: Zay Kidd M.D. 03/19/2025 8:21:25 AM CDT Procedure Note Zay Kidd MD PhD - 03/19/2025 [facility] [place] [place] [address] Transthoracic Echocardiographic Report Patient Name: GUNJAN RILEY K : 1955 (69y 3m) Gender: F Study Date: 03/19/2025 07:01:01 AM Ht(Inch): 64 Wt(Lb): 115.08 BSA: 1.54 Sink Cutter: Zachariah Chao [facility] Location: [facility] Order Provider:CHANDLER GOLDMAN Heart Rate: 69 BMI: 19.75 BP: 146 / 60 Ref Provider: CHANDLER GOLDMAN PROCEDURES: Echocardiographic Report: Transthoracic complete echo with strain imaging,2D, spectral and tissue Doppler, color flow Doppler, M-mode. INDICATIONS: I34.0 Nonrheumatic mitral (valve) insufficiency. CONCLUSIONS: 1. Normal left ventricular size based on volume index. Normal LV wallthickness. Normal left ventricular systolic function. The Ejection Fraction (Dacosta's) ismeasured at 64 %. Normal diastolic function. The average global longitudinal strain isnormal. 2. Normal right ventricular size. Normal right ventricular systolicfunction. TV S'=0.13 m/s (normal function). 3. Mild anterior leaflet MVP with MR. 4. The estimated pulmonary artery systolic pressure is 20.0 mmHg. No pulmHTN. ATTESTATION: I have personally reviewed and interpreted this study without fellow orresident. - DISCLAIMER: The study images and the final report will be retained in the patientchart by the [facility] Laboratory for the legally required time period. This chart constitutesthe legal record of any testing performed. FINDINGS: Left Ventricle: Normal left ventricular size based on volume index. NormalLV wall thickness. Normal left ventricular systolic function. The EjectionFraction (Dacosta's) is measured at 64 %. Normal diastolic function. The average globallongitudinal strain is normal. The LV global strain is: -22.0 %. Right Ventricle: Normal right ventricular size. Normal right ventricularsystolic function. TV S'=0.13 m/s (normal function). Left Atrium: The left atrium is normal in size. Right Atrium: The right atrium is normal in size. Mitral Valve: Normal mitral valve structure. The mean transmitral gradientis: 1 mmHg. Mild anterior leaflet MVP with MR. Aortic Valve: Normal trileaflet aortic valve. No aortic regurgitation. Themean transaortic gradient is 6 mmHg. The aortic valve area by the continuityequation (using VTI) is 2.32 cm2. Aortic valve dimensionless index is 0.89. Tricuspid Valve: Normal tricuspid valve structure. Mild tricuspidregurgitation. The estimated pulmonary artery systolic pressure is 20.0 mmHg. No pulm HTN. Pulmonic Valve: Normal pulmonic valve structure. No pulmonicregurgitation. Pericardium: Normal pericardium without pericardial effusion. Aorta: Normal aortic root. Normal aortic root size at sinuses of Valsalva.Normal aortic root size when indexed. The ascending aorta is normal in size whenindexed. IVC: IVC is normal in size. MEASUREMENTS: 2D/MM Value Range DopplerValue Range LVIDd 2D 4.27 cm [ 3.80 - 5.20 ] AV Peak Vel1.7 m/s [ 1.0 - 1.7 ] LVIDs 2D 1.95 cm [ 2.20 - 3.50 ] AV Peak PG11.56 mmHg IVSd 2D 0.80 cm [ 0.60 - 0.90 ] AV Mean PG6 mmHg LVPWd 2D 0.84 cm [ 0.60 - 0.90 ] AV VTI32.7 cm LV Thickness Ratio 1.0 LVOT Peak Vel1.6 m/s [ 0.7 - 1.1 ] LV FS 2D 54.28 % [ 27.00 - 45.00 ] LVOT Peak PG10.24 mmHg LV Mass 2D 110.06 g LVOT Mean PG5 mmHg LV Mass Index 2D 71.47 g/m2 LVOT VTI29.2 cm RWT 0.39 LVOT Diam1.82 cm EDV Mod BP 65.84 ml [ 46.00 - 106.00 ] MAGDALENO VTI2.32 cm2 LV EDV Index 42.75 ml/m2 LVOT/AV VTI0.89 - Dimensionless index (DVI) ESV Mod BP 23.44 ml [ 14.00 - 42.00 ] MV E Peak Vel0.8 m/s [ 0.6 - 1.3 ] EF Mod BP 64 % [ 54 - 74 ] MV A Peak Vel0.7 m/s [ 1.0 - 1.2 ] LV GLS -22.0 % [ -25.0 - -18.0 ] MV E/A1.2 ratio [ 0.8 - 1.5 ] LA Length 4C 5.28 cm MV Peak Vel0.9 m/s LA Length 2C 4.62 cm MV Peak PG3.24 mmHg LA Volume BP 51.66 ml MV Mean PG1 mmHg LA Volume Index 33.55 ml/m2 [ 16.00 - 34.00 ] MV VTI25.4 cm RV Base Dimen 2D 3.0 cm [ 2.5 - 4.2 ] MV Decel Arzu040.47 msec [ 104.00 - 258.00 ] TAPSE 2.09 cm [ 1.71 - 5.00 ] Med E` Vel9.2 cm/sec [ 8.0 - 25.0 ] RA Volume 25.00 ml Lat E` Vel8.8 cm/sec [ 10.0 - 25.0 ] RA Volume Index 16.23 ml/m2 Average E/E`8.89 AoR Diam 2D 2.72 cm [ 2.70 - 3.70 ] RV S`13.39 cm/sec Ao Root Index 1.77 cm/m2 [ 1.00 - 2.00 ] PV Peak Vel1.4 m/s [ 0.4 - 0.8 ] Asc Ao Diam 2D 2.66 cm PV Peak PG7.84 mmHg Asc Ao Index1.73 cm/m2 Electronically Signed By: Zay Kidd M.D. 03/19/2025 8:21:25 AM CDT us Chandler Goldman MD CV ECHO PROCEDURES Final Resu lt * US Renal Limited Including Duplex Doppler Bilateral Complete (C) (03/05/2025 2:39 PM CDT) Anatomical Region Laterality Modality Vascular N/A Ultrasound 03/05/2025 2:57 PM CDT Impressions 03/05/2025 2:57 PM CDT 1. No Doppler evidence of renal artery stenosis on the right or left. 2. Normal kidneys. No hydronephrosis. Electronically signed by: Nena Naranjo M.D. Narrative 03/05/2025 2:57 PM CDT EXAMINATION: 1. COMPLETE RENAL SONOGRAM 2. RENAL DOPPLER (TONI) HISTORY: Hypertension with abdominal bruit COMPARISON: None FINDINGS: COMPLETE RENAL SONOGRAM: Kidneys: The echogenicity of both kidneys is normal. The kidneys are normal in size. The right kidney measures 9.3 cm in length, and the left, 9.9 cm in length. There is no hydronephrosis in either kidney. Bladder: The urinary bladder is normal RENAL DOPPLER: Color Doppler and spectral analysis were used to evaluate the renal vasculature. No focal flow abnormalities were seen in the renal arteries on color Doppler. The peak systolic velocities at the origins of the right and left renal arteries and aorta were 118 cm/sec, 77 cm/sec, and 74 cm/sec, respectively. These velocities and the renal to aortic ratios are within normal limits. The visualized portions of the right and left renal veins are patent. Procedure Note Nena Naranjo MD - 03/05/2025 EXAMINATION: 1. COMPLETE RENAL SONOGRAM 2. RENAL DOPPLER (TONI) HISTORY: Hypertension with abdominal bruit COMPARISON: None FINDINGS: COMPLETE RENAL SONOGRAM: Kidneys: The echogenicity of both kidneys is normal. The kidneys are normal in size. The right kidney measures 9.3 cm in length, and the left, 9.9 cm in length. There is no hydronephrosis in either kidney. Bladder: The urinary bladder is normal RENAL DOPPLER: Color Doppler and spectral analysis were used to evaluate the renal vasculature. No focal flow abnormalities were seen in the renal arteries on color Doppler. The peak systolic velocities at the origins of the right and left renal arteries and aorta were 118 cm/sec, 77 cm/sec, and 74 cm/sec, respectively. These velocities and the renal to aortic ratios are within normal limits. The visualized portions of the right and left renal veins are patent. IMPRESSION: 1. No Doppler evidence of renal artery stenosis on the right or left. 2. Normal kidneys. No hydronephrosis. Electronically signed by: Nena Naranjo M.D. Chandler Goldman MD [facility] PROCEDURES Final Resul t * Dexa Axial Skeleton Bone Density 1 Or 2 Site (01/22/2025 3:23 PM CDT) Anatomical Region Laterality Modality Body N/A Digital Radiogra phy 01/22/2025 3:36 PM CDT Impressions 01/22/2025 5:00 PM CDT 1. The bone mineral density of the lumbar spine is normal. There has been a statistically significant increase in bone mineral density since the baseline examination of 10/03/2018. 2. The bone mineral density of the left femoral neck is mildly decreased. 3. The bone mineral density of the left total hip is mildly decreased. There has been no significant change in bone mineral density since the baseline examination of 10/03/2018. 4. Overall, the above findings are diagnostic of low bone mass (osteopenia) by WHO criteria. 5. Based on the FRAX fracture risk model, the 10-year probability for major osteoporotic fracture is 11% and that for hip fracture is 2.1%. This 10-year fracture risk estimate was calculated using the risk factors noted in the history above, along with the femoral neck bone density. FRAX is intended to help guide treatment decisions in men over age 50 and postmenopausal women with low bone mass (osteopenia). The National Osteoporosis Foundation (NOF) recommends that FDA-approved medical therapies be considered in postmenopausal women and men age 50 years and older with osteoporosis and those with low bone mass whose 10-year fracture probability by FRAX is >= 20% for major osteoporotic fracture or >= 3% for hip fracture. However, all treatment decisions require clinical judgment and consideration of individual patient factors, including patient preferences, comorbidities, previous drug use, risk factors not captured in the FRAX model (e.g., frailty, falls, vitamin D deficiency, increased bone turnover, interval significant decline in bone density) and possible under- or overestimation of fracture risk by FRAX. General comments regarding interpretation of bone density measurements: A) In children, premenopausal woman and males under age 50 not at increased risk for fractures only Z-scores, not T-scores are used to indicate risk. A Z-score above -2.0 is defined as within the expected range for age and Z-score at or less than -2.0 is below the expected range for age. A Z-score below the expected range for age in a patient with recent fractures and/or chronic corticosteroid treatment is consistent with a diagnosis of osteoporosis. B) In post menopausal women and males over 50, comparison of the measured bone mineral density with the average value in young normal subjects (the T-score) has been found to be useful in assessing fracture risk. Fracture risk approximately doubles for each 1.0 standard deviation (SD) in individual's hip or spine bone mineral density is below the average value of young normal subjects. The World Health Organization (WHO) has defined T-scores of -1.0 to -2.5 as diagnostic of low bone mass (OSTEOPENIA), and T-scores of -2.5 or lower to be diagnostic of OSTEOPOROSIS, based on the site of lowest bone density. Note that there will be a change in reporting format and reference databases as patients move from the younger population (group A) to the older population (group B) The National Osteoporosis Foundation (www.nof.org) recommends adequate intake of calcium and vitamin D and regular weight-bearing exercise in all patients. They recommend pharmacologic treatment in postmenopausal women and men age 50 and older presenting with any of the followin) Osteoporosis, after appropriate evaluation to exclude secondary causes. 2) A hip or vertebral (clinical or radiographic) fracture, regardless of the bone density. 3) Low bone mass (Osteopenia) and one or more of: other prior fractures, secondary causes associated with high risk of fracture (such as glucocorticoid use or total immobilization), or computed high risk of fracture (10-yr probability of hip fracture >= 3% or a 10-yr probability of any major osteoporosis-related fracture >= 20% based on the [place].-adapted WHO algorithm), available at http://www.shef.ac.uk/FRAX). Dictated by: Ryan Meyers MD The radiology attending physician has personally reviewed this study, and had reviewed and/or edited this written report and agrees with it. Electronically signed by: DO Yobani Sow 01/22/2025 5:00 PM CDT BONE DENSITOMETRY OF THE SPINE AND HIP DATE OF STUDY: 01/22/2025 HISTORY: 69-year-old postmenopausal woman . She is taking calcium and vitamin D. Evaluate bone mineral density. FINDINGS (SPINE): The bone mineral density of L1-L4 was assessed by dual-energy x-ray absorptiometry. The average bone mineral density within this region is 1.142 gm/sq-cm. This is 2.8 standard deviations above the mean of the average bone mineral density for age- and gender-matched subjects (the Z-score). It is 0.9 standard deviations above the mean peak bone mineral density in young adults (the T-score). FINDINGS (FEMORAL NECK): The bone mineral density of the left femoral neck was assessed by dual-energy x-ray absorptiometry. The average bone mineral density within the femoral neck region is 0.612 gm/sq-cm. This is 0.5 standard deviations below the mean of the average bone mineral density for age- and gender-matched subjects (the Z-score). It is 2.1 standard deviations below the mean peak bone mineral density in young adults (the T-score). FINDINGS (TOTAL HIP): The bone mineral density of the left hip was assessed by dual-energy x-ray absorptiometry. The average bone mineral density within the total hip region is 0.773 gm/sq-cm. This is equal to the mean of the average bone mineral density for age- and gender-matched subjects (the Z-score). It is 1.4 standard deviations below the mean peak bone mineral density in young adults (the T-score). SUMMARY OF CURRENT RESULTS: Region BMD T-score Z-score AP Spine (L1-L4) 1.142 0.9 2.8 Femoral Neck (Left) 0.612 -2.1 -0.5 Total Hip (Left) 0.773 -1.4 0.0 COMPARISON WITH PREVIOUS RESULTS Region Age BMD T-score BMD Change BMD Change Exam Date g/cm2 vs Baseline vs Previous AP Spine (L1-L4) 01/22/2025 69 1.142 0.9 0.039 (3.6%)* 0.028 (2.5%)* 12/21/2022 67 1.114 0.6 0.012 (1.1%) -0.005 (-0.5%) 12/16/2020 65 1.120 0.7 0.017 (1.5%) 0.017 (1.5%) 10/03/2018 62 1.103 0.5 Total Hip(Left) 01/22/2025 69 0.773 -1.4 -0.001 (-0.1%) -0.025 (-3.2%) 12/21/2022 67 0.798 -1.2 0.025 (3.2%) 0.024 (3.1%) 12/16/2020 65 0.774 -1.4 0.001 (0.1%) 0.001 (0.1%) 10/03/2018 62 0.773 -1.4 *Denotes significance at 95% confidence level Procedure Note Delon JulienDO - 01/22/2025 BONE DENSITOMETRY OF THE SPINE AND HIP DATE OF STUDY: 01/22/2025 HISTORY: 69-year-old postmenopausal woman . She is taking calcium and vitamin D. Evaluate bone mineral density. FINDINGS (SPINE): The bone mineral density of L1-L4 was assessed by dual-energy x-ray absorptiometry. The average bone mineral density within this region is 1.142 gm/sq-cm. This is 2.8 standard deviations above the mean of the average bone mineral density for age- and gender-matched subjects (the Z-score). It is 0.9 standard deviations above the mean peak bone mineral density in young adults (the T-score). FINDINGS (FEMORAL NECK): The bone mineral density of the left femoral neck was assessed by dual-energy x-ray absorptiometry. The average bone mineral density within the femoral neck region is 0.612 gm/sq-cm. This is 0.5 standard deviations below the mean of the average bone mineral density for age- and gender-matched subjects (the Z-score). It is 2.1 standard deviations below the mean peak bone mineral density in young adults (the T-score). FINDINGS (TOTAL HIP): The bone mineral density of the left hip was assessed by dual-energy x-ray absorptiometry. The average bone mineral density within the total hip region is 0.773 gm/sq-cm. This is equal to the mean of the average bone mineral density for age- and gender-matched subjects (the Z-score). It is 1.4 standard deviations below the mean peak bone mineral density in young adults (the T-score). SUMMARY OF CURRENT RESULTS: Region BMD T-score Z-score AP Spine (L1-L4) 1.142 0.9 2.8 Femoral Neck (Left) 0.612 -2.1 -0.5 Total Hip (Left) 0.773 -1.4 0.0 COMPARISON WITH PREVIOUS RESULTS Region Age BMD T-score BMD Change BMD Change Exam Date g/cm2 vs Baseline vs Previous AP Spine (L1-L4) 01/22/2025 69 1.142 0.9 0.039 (3.6%)* 0.028 (2.5%)* 12/21/2022 67 1.114 0.6 0.012 (1.1%) -0.005 (-0.5%) 12/16/2020 65 1.120 0.7 0.017 (1.5%) 0.017 (1.5%) 10/03/2018 62 1.103 0.5 Total Hip(Left) 01/22/2025 69 0.773 -1.4 -0.001 (-0.1%) -0.025 (-3.2%) 12/21/2022 67 0.798 -1.2 0.025 (3.2%) 0.024 (3.1%) 12/16/2020 65 0.774 -1.4 0.001 (0.1%) 0.001 (0.1%) 10/03/2018 62 0.773 -1.4 *Denotes significance at 95% confidence level IMPRESSION: 1. The bone mineral density of the lumbar spine is normal. There has been a statistically significant increase in bone mineral density since the baseline examination of 10/03/2018. 2. The bone mineral density of the left femoral neck is mildly decreased. 3. The bone mineral density of the left total hip is mildly decreased. There has been no significant change in bone mineral density since the baseline examination of 10/03/2018. 4. Overall, the above findings are diagnostic of low bone mass (osteopenia) by WHO criteria. 5. Based on the FRAX fracture risk model, the 10-year probability for major osteoporotic fracture is 11% and that for hip fracture is 2.1%. This 10-year fracture risk estimate was calculated using the risk factors noted in the history above, along with the femoral neck bone density. FRAX is intended to help guide treatment decisions in men over age 50 and postmenopausal women with low bone mass (osteopenia). The National Osteoporosis Foundation (NOF) recommends that FDA-approved medical therapies be considered in postmenopausal women and men age 50 years and older with osteoporosis and those with low bone mass whose 10-year fracture probability by FRAX is >= 20% for major osteoporotic fracture or >= 3% for hip fracture. However, all treatment decisions require clinical judgment and consideration of individual patient factors, including patient preferences, comorbidities, previous drug use, risk factors not captured in the FRAX model (e.g., frailty, falls, vitamin D deficiency, increased bone turnover, interval significant decline in bone density) and possible under- or overestimation of fracture risk by FRAX. General comments regarding interpretation of bone density measurements: A) In children, premenopausal woman and males under age 50 not at increased risk for fractures only Z-scores, not T-scores are used to indicate risk. A Z-score above -2.0 is defined as within the expected range for age and Z-score at or less than -2.0 is below the expected range for age. A Z-score below the expected range for age in a patient with recent fractures and/or chronic corticosteroid treatment is consistent with a diagnosis of osteoporosis. B) In post menopausal women and males over 50, comparison of the measured bone mineral density with the average value in young normal subjects (the T-score) has been found to be useful in assessing fracture risk. Fracture risk approximately doubles for each 1.0 standard deviation (SD) in individual's hip or spine bone mineral density is below the average value of young normal subjects. The World Health Organization (WHO) has defined T-scores of -1.0 to -2.5 as diagnostic of low bone mass (OSTEOPENIA), and T-scores of -2.5 or lower to be diagnostic of OSTEOPOROSIS, based on the site of lowest bone density. Note that there will be a change in reporting format and reference databases as patients move from the younger population (group A) to the older population (group B) The National Osteoporosis Foundation (www.nof.org) recommends adequate intake of calcium and vitamin D and regular weight-bearing exercise in all patients. They recommend pharmacologic treatment in postmenopausal women and men age 50 and older presenting with any of the followin) Osteoporosis, after appropriate evaluation to exclude secondary causes. 2) A hip or vertebral (clinical or radiographic) fracture, regardless of the bone density. 3) Low bone mass (Osteopenia) and one or more of: other prior fractures, secondary causes associated with high risk of fracture (such as glucocorticoid use or total immobilization), or computed high risk of fracture (10-yr probability of hip fracture >= 3% or a 10-yr probability of any major osteoporosis-related fracture >= 20% based on the [place].-adapted WHO algorithm), available at http://www.shef.ac.uk/FRAX). Dictated by: Ryan Meyers MD The radiology attending physician has personally reviewed this study, and had reviewed and/or edited this written report and agrees with it. Electronically signed by: Delon Julien DO us Sonya Burns MD IM DXA PROCEDURES Final Re sult * Hepatitis C antibody Blood (10/02/2024 6:58 AM RECORD TESTER) Hep C Ab NON-REACTI VE NON-REACT TANA [facility] Comment: HCV antibody was non-reactive. There is no laboratory evidence of HCV infection. In most cases, no further action is required. However, if recent HCV exposure is suspected, a test for HCV RNA (test code 12922) is suggested. For additional information please refer to http://education.[employer]/faq/KCH72h1 (This link is being provided for informational/ educational purposes only.) Blood 10/02/2024 6:58 AM RECORD TESTER 10/02/2024 6:59 AM RECORD TESTER Narrative [facility] - 10/08/2024 12:36 PM RECORD TESTER FASTING:YES FASTING: YES us Chandler Goldman MD LAB MICROBIOLOGY - GENERAL OR DERABLES Final Result [facility] [id number] [address] [id number] * HM MAMMOGRAPHY (01/26/2023) Mammography Normal Impressions Chandler Goldman MD - 01/26/2023 [facility]. Narrative Chandler Goldman MD - 01/26/2023 See scanned report. Sonya Burns MD HEALTH MAINTENANCE Final Re sult from Last 3 Months or Most Recently Relevant to Health Maintenance Insurance [employer] OOS Member Subscriber Plan / Payer (Ef fective 2018-Present) Name:Gunjan Riley Relation to Subscriber:Self Name:Gunjan Riley Payer ID:[id number] (NAIC) Type:[employer] Address: [id number] [place] [address] [employer]zero ACCESS OOS Member Subscriber Plan / Payer (Ef fective 2018-Present) Name:Gunjan Riley Relation to Subscriber:Self Name:Gunjan Riley Payer ID:[id number] ([facility]) Type:[employer] Address: [place] [address] BLUE ACCESS OOS Member Subscriber Plan / Payer (Ef fective 2018-Present) Name:Gunjan Riley Relation to Subscriber:Self Name:Gunjan Riley Payer ID:[id number] (NA) Type:[employer] Address: [address] [place] [address] Care Teams Business Operations Coordinator Relationship Specialty Start Date End Date Chandler Goldman MD [address] [place] [address] PCP - General Internal Medicine 05/02/23 Sonya Burns MD [address] [facility] [address] [place] [address] Consulting Physician Obstetrics and Gynecology 09/25/13 Ericka Ibrahim MD [address] [facility] [address] [place] [address] Consulting Physician Dermatology 07/14/19
--- OUTSIDE RECORDS SUMMARY | 2025-04-22 16:17 | XMS_ITS | Encounter Summary ---
Author Organization [facility] Address [address] [place] [address] Care Team Providers Care Silk Trimmer Name Role Phone Jass Wynn MD Primary Care Provider [phone] Niels Desai MD Primary Care Provider [phone] Sonya Burns MD Unavailable Ericka Ibrahim MD Unavailable [phone] Reason for Referral * Diagnostic Imaging (Routine) - Closed Specialty Diagnoses / Procedures Referred By Contac t Referred To Contact Diagnoses Osteopenia determined by x-ray Procedures Dexa Axial Skeleton Bone Density 1 or 2 Site Jass Wynn MD Phone: tel: fax: [address] [address] Referral ID Status Reason Start Date Expiration Date Visits Re quested Visits Authorized [id number] Closed 09/26/2018 04/06/2020 1 1 NCIAL AIDS OFFICER Encounter Details Date Type Department Care Team (Late st Contact Info) Description 09/25/2018 Community Orders [facility] Link Jass Wynn MD [address] [place] [address] Osteopenia determined by x-ray (Primary Dx) Social History Tobacco Use Types Packs/Day Years Used Date Smoking Tobacco: Never Smokeless Tobacco: Never Alcohol Use Standard Drinks/Week Comments Yes 0 (1 standard drink = 0.6 oz pur e alcohol) Comments No Sex and Gender Information Value Date Recorded Sex Assigned at Not on file Legal Sex Female 1:12 AM FINANCIAL AIDS OFFICER Gender Identity Not on file Sexual Orientation Not on file documented as of this encounter Plan of Treatment Not on file documented as of this encounter Results * Dexa Axial Skeleton Bone Density 1 or 2 Site (10/03/2018 12:34 PM FINANCIAL AIDS OFFICER) Anatomical Region Laterality Modality Body N/A Digital Radiogra phy 10/03/2018 1:44 PM FINANCIAL AIDS OFFICER Impressions 10/03/2018 2:53 PM FINANCIAL AIDS OFFICER 1. The bone mineral density of the lumbar spine is normal. 2. The bone mineral density of the left femoral neck is mildly decreased. 3. The bone mineral density of the left total hip is mildly decreased. 4. Overall, the above findings are diagnostic of low bone mass (osteopenia) by WHO criteria. 5. Based on the FRAX fracture risk model, the 10-year probability for major osteoporotic fracture is 16% and that for hip fracture is 1.3%. This 10-year fracture risk estimate was calculated [...] in bone density) and possible under- or over-estimation of fracture risk by FRAX. General comments regarding interpretation of bone mineral density measurements: A) In children, premenopausal woman [...] WHO algorithm), available at http://www.shef.ac.uk/FRAX). Dictated by: Rei Ferguson M.D. Electronically signed by: Ilia Solomon M.D. Narrative 10/03/2018 2:53 PM FINANCIAL AIDS OFFICER BONE DENSITOMETRY OF THE SPINE AND HIP DATE OF STUDY: 10/03/2018 HISTORY: 62-year-old postmenopausal woman undergoing screening for osteoporosis. She is being treated with vitamin D. Patient reports hip fracture in parent. Evaluate bone mineral density. FINDINGS (SPINE): The bone mineral density of L1-L4 was assessed by dual-energy x-ray absorptiometry. The average bone mineral density within this region is 1.103 gm/sq-cm. This is 2.0 standard deviations above the mean of the average bone mineral density for age- and gender-matched subjects (the Z-score). It is 0.5 standard deviations above the mean peak bone mineral density in young adults (the T-score). FINDINGS (FEMORAL NECK): The bone mineral density of the left femoral neck was assessed by dual-energy x-ray absorptiometry. The average bone mineral density within the femoral neck region is 0.616 gm/sq-cm. This is 0.7 standard deviations below the mean of the [...] hip region is 0.773 gm/sq-cm. This is 0.3 standard deviations below the mean of the average bone mineral density for age- and gender-matched subjects (the Z-score). It is 1.4 standard deviations below the mean peak bone mineral density in young adults (the T-score). SUMMARY OF CURRENT RESULTS: Region Exam Date BMD T-Score Z-Score AP Spine (L1-L4) 10/03/2018 1.103 0.5 2.0 Femoral Neck (Left) 10/03/2018 0.616 -2.1 -0.7 Total Hip (Left) 10/03/2018 0.773 -1.4 -0.3 Procedure Note Ilia Solomon MD - 10/03/2018 BONE DENSITOMETRY OF THE SPINE AND HIP DATE OF STUDY: 10/03/2018 HISTORY: 62-year-old postmenopausal woman undergoing screening for osteoporosis. She is being treated with vitamin D. Patient reports hip fracture in parent. Evaluate bone mineral density. FINDINGS (SPINE): The bone mineral density of L1-L4 was assessed by dual-energy x-ray absorptiometry. The average bone mineral density within this region is 1.103 gm/sq-cm. This is 2.0 standard deviations above the mean of the average bone mineral density for age- and gender-matched subjects (the Z-score). It is 0.5 standard deviations above the mean peak bone mineral density in young adults (the T-score). FINDINGS (FEMORAL NECK): The bone mineral density of the left femoral neck was assessed by dual-energy x-ray absorptiometry. The average bone mineral density within the femoral neck region is 0.616 gm/sq-cm. This is 0.7 standard deviations below the mean of the [...] hip region is 0.773 gm/sq-cm. This is 0.3 standard deviations below the mean of the average bone mineral density for age- and gender-matched subjects (the Z-score). It is 1.4 standard deviations below the mean peak bone mineral density in young adults (the T-score). SUMMARY OF CURRENT RESULTS: Region Exam Date BMD T-Score Z-Score AP Spine (L1-L4) 10/03/2018 1.103 0.5 2.0 Femoral Neck (Left) 10/03/2018 0.616 -2.1 -0.7 Total Hip (Left) 10/03/2018 0.773 -1.4 -0.3 IMPRESSION: 1. The bone mineral density of the lumbar spine is normal. 2. The bone mineral density of the left femoral neck is mildly decreased. 3. The bone mineral density of the left total hip is mildly decreased. 4. Overall, the above findings are diagnostic of low bone mass (osteopenia) by WHO criteria. 5. Based on the FRAX fracture risk model, the 10-year probability for major osteoporotic fracture is 16% and that for hip fracture is 1.3%. This 10-year fracture risk estimate was calculated [...] in bone density) and possible under- or over-estimation of fracture risk by FRAX. General comments regarding interpretation of bone mineral density measurements: A) In children, premenopausal woman [...] WHO algorithm), available at http://www.shef.ac.uk/FRAX). Dictated by: Rei Ferguson M.D. Electronically signed by: Ilia Solomon M.D. Jass Wynn MD IMG DXA PROCEDURES Final Result documented in this encounter Visit Diagnoses Diagnosis Osteopenia determined by x-ray- Primary Osteopenia determined by x-ray documented in this encounter Care Teams Silk Trimmer Relationship Specialty Start Date End Date Jass Wynn MD [address] [facility] [address] [place] [address] PCP - General 03/18/13 05/01/23 Niels Desai MD [address] [place] [address] PCP - General Internal Medicine 05/02/23 Sonya Burns MD [address] [facility] [address] [place] [address] Consulting Physician Obstetrics and Gynecology 09/25/13 Ericka Ibrahim MD [address] [facility] [address] [place] [address] Consulting Physician Dermatology 07/14/19 documented as of this encounter
--- OUTSIDE RECORDS SUMMARY | 2025-04-22 16:17 | XMS_ITS | Encounter Summary ---
Author Organization [facility] Healthcare Address [address] [place] [address] Care Team Providers Care Certified Orthotist Practice Manager Name Role Phone Niels Desai MD Primary Care Provider [phone] Sonya Burns MD Unavailable [phone] Ericka Ibrahim MD Unavailable [phone] Encounter Details Date Type Department Care Team (Late st Contact Info) Description 03/19/2025 Results Follow-Up [facility] [address] [place] [phone] Niels Desai MD [address] [facility] [address] [place] [address] Transthoracic Echo (TTE) Complete W Doppler/CF Social History Tobacco Use Types Packs/Day Years [...] on file Legal Sex Female 1:12 AM FRUIT SPRAYER Gender Identity Not on file Sexual Orientation Not on file 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 documented in this encounter Plan of Treatment Not on file documented as of this encounter Visit Diagnoses Not on filedocumented in this encounter Care Teams Certified Orthotist Practice Manager Relationship Specialty Start Date End Date Niels Desai MD [address] [place] [address] PCP - General Internal Medicine 05/02/23 Sonya Burns MD [address] [address] Consulting Physician Obstetrics and Gynecology 09/25/13 Ericka Ibrahim MD [address] [address] Consulting Physician Dermatology 07/14/19 documented as of this encounter
--- OUTSIDE RECORDS SUMMARY | 2025-04-22 16:17 | XMS_ITS | Encounter Summary ---
Author Organization [facility] Address [address] [place] [address] Care Team Providers Care Nematologist Name Role Phone Niels Desai MD Primary Care Provider [phone] Sonya Burns MD Unavailable [phone] Ericka Ibrahim MD Unavailable [phone] Encounter Details Date Type Department Care Team (Late st Contact Info) Description 03/07/2025 Results Follow-Up [facility] [address] [place] [address] Niels Desai MD [address] [place] [address] US Renal Limited Including Duplex Doppler Bilateral Complete (C) Social History Tobacco Use Types Packs/Day Years [...] on file Legal Sex Female 1:12 AM ANTENNA SPECIALIST Gender Identity Not on file Sexual Orientation Not on file Occupation Industry Job Start Date Job End Date [employer] Not on file Not on file Not on file documented as of this encounter Miscellaneous Notes * Result Encounter Note - Niels Desai MD - 03/07/2025 7:17 AM CDT See phone message regarding this result. documented in this encounter Plan of Treatment Not on file documented as of this encounter Visit Diagnoses Not on filedocumented in this encounter Care Teams Nematologist Relationship Specialty Start Date End Date Niels Desai MD [address] [place] [address] PCP - General Internal Medicine 05/02/23 Sonya Burns MD [address] [address] Consulting Physician Obstetrics and Gynecology 09/25/13 Ericka Ibrahim MD [address] [facility] [address] [place] [address] Consulting Physician Dermatology 07/14/19 documented as of this encounter
--- OUTSIDE RECORDS SUMMARY | 2025-04-22 16:17 | XMS_ITS | Clinical Summary ---
Author Organization [facility] Address [address] [facility] [place] [address] Care Team Providers Care Heat Treating Operator Name Role Phone Niels Desai MD Primary Care Provider [phone] Source Comments [facility],non-owned Affiliates and Associated Physician Practices is amultiple site organization consisting of ambulatory clinics and hospital sitesin [place] and [place]. This disclosure is being madepursuant to the Care Everywhere program and may not contain all information available regarding this patient. Last updated 18.[facility] Allergies No known active allergies Medications * Be aware that medications may not be up to date on this document. Alwaysverify current medications with the patient. MULTIPLE VITAMIN PO Take 1 tablet by mouth once daily Active Cholecalciferol (VITAMIN D3 PO) Take 2,000 Int'l Units by mouth once daily Active ferrous sulfate (Feosol) 45 MG tablet Take 1 (one) tablet by mouth once daily Active Multiple Vitamins-Minera ls (PreserVision AREDS 2) capsule Take 1 (one) capsule by mouth once daily Active Ascorbic Acid (Vitamin C) 500 MG Take 1 tablet by mouth once daily Active diclofenac sodium (Pennsaid) 1.5 % topical solution Apply 3 (three) drops to 5 (five) drops to affected area once daily as needed 09/25/2023 Active Active Problems Problem Noted Date Diagnosed Date Neoplasm of uncertain behavior of skin 2 Multiple benign melanocytic nevi of upper and lower extremities and trunk 04/13/2022 Telangiectasia 04/13/2022 Solar lentiginosis 04/13/2022 Seborrheic keratosis 04/13/2022 Osteoarthrosis 10/01/2014 Overview (06/20/2021): Osteoarthritis Neoplasm of spinal cord 12/11/2011 Actinic keratosis 10/03/2011 History of basal cell carcinoma (BCC) 10/03/2011 Verruca vulgaris 10/03/2011 Microscopic hematuria 10/12/2008 CKD (chronic kidney disease), stage III 09/29/20 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 Family history of malignant neoplasm of ovary Mitral valve disorder 09/15/2001 Other depressive disorder 05/22/2001 Fibrocystic breast disease (FCBD) 09/12/2000 Family History Medical History Relation Name Comments Allergy (Severe) Neg Hx CVA Neg Hx Cancer Neg Hx Cancer - Skin, Melanoma Neg Hx Cancer - Skin, Non Melanoma Neg Hx Eczema Neg Hx Hemophilia Neg Hx Psoriasis Neg Hx Rashes/Skin Problems Neg Hx Social History Tobacco Use Types Packs/Day Years Used Date Smoking Tobacco: Never Smokeless Tobacco: Never Tobacco Cessation:Counseling Given: No Alcohol Use Standard Drinks/Week Comments Yes 0.8 (1 standard drink = 0.6 oz p ure alcohol) Comments Unknown Sex and Gender Information Value Date Recorded Sex Assigned at Not on file Legal Sex Female 6:00 PM DIRECTOR OF RESIDENCE LIFE Gender Identity Not on file Sexual Orientation Not on file Plan of Treatment Upcoming Encounters Date Type Department Care Team (Late st Contact Info) Description 07/05/2025 2:10 PM CDT Office Visit [facility] - Dermatology [address] [place] [address], [facility] [place] [address] Khloe Goode MD [address] [place] [address] [place] [phone] Health Maintenance Due Date Last Done Comments COLOGUARD (AGES 45-75) - COLON CA SCREENING 1956 COLON MONITORING 1956 COLONOSCOPY - COLON CA SCREENING 1956 CT COLONOGRAPHY - COLON CA SCREENING 1956 Colorectal Cancer Screening 1956 FIT - COLON CA SCREENING 1956 FLEX SIG - COLON CA SCREENING 1956 LIPID TESTING 1956 MAMMOGRAM 1956 HEPATITIS C SCREENING 12/09/1974 DTAP/TDAP/TD VACCINES (1 - Tdap) 12/14/1975 PNEUMOCOCCAL VACCINE 50+ (1 of 2 - PCV) 12/14/1975 ZOSTER VACCINE (1 of 2) 12/14/1975 Respiratory Syncytial Virus (RSV) Vaccine Pt: or over 60 yrs (1 - Risk 60-74 years 1-dose series) 2016 COVID-19 VACCINE ( season) 2024 08/04/2022, 01/15/2022, 05/03/2021, Additional history exists DEPRESSION SCREENING 10/14/2024 INFLUENZA VACCINE (#1) 2025 , 08/20/2021, 08/12/2020, Additional history exists BONE DENSITY TESTING Completed 12/21/2022, 12/16/2020, 10/03/2018 HEPATITIS B VACCINE Aged Out No longe r eligible based on patient's age to complete this topic HIB VACCINE Aged Out No longer eligi ble based on patient's age to complete this topic HPV VACCINE Aged Out No longer eligi ble based on patient's age to complete this topic MENINGOCOCCAL (Group B) VACCINE SHARED DECISION-MAKING Aged Out No longer eligible based on patient's age to complete this topic MENINGOCOCCAL GROUPS A/C/Y/W VACCINE Aged Out No longer eligible based on patient's age to complete this topic Insurance [employer] Care Teams Heat Treating Operator Relationship Specialty Start Date End Date Niels Desai MD [address] [place] [phone] PCP - General Infectious Disease 02/10/24
--- OUTSIDE RECORDS SUMMARY | 2025-04-22 16:17 | XMS_ITS | Encounter Summary ---
Author Organization [facility] Healthcare Address [address] [place] [address] Care Team Providers Care It Professional Name Role Phone Jass Wynn MD Primary Care Provider [phone] Niels Desai MD Primary Care Provider [phone] Sonya Burns MD Unavailable [phone] Ericka Ibrahim MD Unavailable Encounter Details Date Type Department Care Team (Late st Contact Info) Description 12/15/2020 Telephone [facility] [address] [place] [address] [place] [address] Nena Castillo, RT Social History Tobacco Use Types Packs/Day Years Used Date Smoking Tobacco: Never Smokeless Tobacco: Never Alcohol Use Standard Drinks/Week Comments Yes 0 (1 standard drink = 0.6 oz pur e alcohol) PHQ-2 Answer Date Recorded PHQ-2 Total Score (If total score is 3 or more points, staff should administer the PHQ-9) 0 10/28/2020 Comments No Sex and Gender Information Value Date Recorded Sex Assigned at Not on file Legal Sex Female 1:12 AM COMMUNITY SERVICE OFFICER Gender Identity Not on file Sexual Orientation Not on file documented as of this encounter Plan of Treatment Not on file documented as of this encounter Visit Diagnoses Not on filedocumented in this encounter Care Teams It Professional Relationship Specialty Start Date End Date Jass Wynn MD [address] [facility] [address] [place] [address] PCP - General 03/18/13 05/01/23 Niels Desai MD [address] [place] [address] PCP - General Internal Medicine 05/02/23 Sonya Burns MD [address] [address] Consulting Physician Obstetrics and Gynecology 09/25/13 Ericka Ibrahim MD [address] [address] Consulting Physician Dermatology 07/14/19 documented as of this encounter
--- OUTSIDE RECORDS SUMMARY | 2025-04-22 16:17 | XMS_ITS | Clinical Summary ---
Author Organization [facility] Address [address] [place] [address] Care Team Providers Care Law Instructor Name Role Phone Chandler Goldman MD Primary Care Provider Sonya Burns MD Unavailable Ericka Ibrahim MD Unavailable Allergies No known active allergies Medications cholecalciferol (VITAMIN D3) 2,000 unit tablet 0 0 4 Active ascorbic acid (VITAMIN C) 1,000 mg tablet Acti ve vitamins A,C,P-zjuy-usmdn r (ICAPS) 14320-226-200 ctpj-pi-wzyl capsule Take by mouth Active zinc 50 [...] 10/02/2024 Assessment & Plan (11/08/2024 4:50 AM TESTING SHAKING SHIPPING): New finding as of about a month [...] 09/16/2024 Assessment & Plan (11/08/2024 4:49 AM TESTING SHAKING SHIPPING): New finding as of about a month [...] 09/16/2024 Assessment & Plan (09/28/2024 5:06 PM TESTING SHAKING SHIPPING): New finding as of recent labs, uncertain cause or significance. Hemoglobin is well within normal limits. TSH was normal. She denies alcohol use for at least two years. We ordered a B12 level. Other evaluation may be appropriate. Abnormal gamma globulin level 09/16/2024 Overview (09/28/2024): Borderline low. Assessment & Plan (11/08/2024 4:48 AM TESTING SHAKING SHIPPING): New finding as of about six weeks ago, the globulin fraction on a CMP was low, uncertain cause or significance. We ordered quantitative immunoglobulins which were normal (IgG, IgA, IgM). We ordered a follow-up comprehensive panel to be done in about one month to see if there are any trends. Assessment & Plan (09/28/2024 5:04 PM TESTING SHAKING SHIPPING): New finding as of recent lab work, uncertain cause and significance. We ordered quantitative immunoglobulins to start with. A serum protein electrophoresis may also be appropriate. Return early as needed depending on findings. Leukopenia 09/16/2024 Assessment & Plan (10/30/2024 4:46 PM TESTING SHAKING SHIPPING): New finding as of about six weeks [...] drawn. Assessment & Plan (10/03/2024 6:40 AM TESTING SHAKING SHIPPING): New finding as of recent lab work. [...] surgeon. Assessment & Plan (09/25/2023 5:49 PM TESTING SHAKING SHIPPING): She saw her orthopedic surgeon who diagnosed [...] mL/minute. Assessment & Plan (09/25/2023 5:48 PM TESTING SHAKING SHIPPING): Kidney function is stable. We will see [...] readings. Assessment & Plan (09/28/2024 5:08 PM TESTING SHAKING SHIPPING): Chronic, present for over four years. She brought in blood pressure readings from home which are well within normal limits. We will continue to monitor without specific intervention. Assessment & Plan (09/25/2023 5:51 PM TESTING SHAKING SHIPPING): Blood pressure is in a good range. [...] Osteoarthritis Assessment & Plan (09/25/2023 5:50 PM TESTING SHAKING SHIPPING): Mostly she has left knee pain from [...] years. Assessment & Plan (09/28/2024 5:07 PM TESTING SHAKING SHIPPING): Chronic, present for more than 10 years, monitored with periodic imaging. She reports that her last MRI was stable. She will keep her followups with her specialists. Assessment & Plan (09/25/2023 5:50 PM TESTING SHAKING SHIPPING): The presacral schwannoma was stable as of [...] 10/03/2011 05/03/2023 Overview (05/03/2023): Treated by her manager cardiac cath. Microscopic hematuria 10/12/20082022 Overview (05/03/2023): Runner's hematuria, resolved with lower mileage. 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 Patient is unaware of any such history. Mitral valve disorder 09/15/20012022 Overview (05/03/2023): Had an echo, had mitral valve prolapse, details lacking. Since then no one heard anything. Other depressive disorder 05/22/2001 Overview (05/03/2023): Patient denies. Encounters Date Type Department Care Team Description 03/26/2025 Telephone [facility] [address] [place] [address] Chandler Goldman MD 03/19/2025 6:55 AM CDT - 03/19/2025 11:59 PM CDT Hospital Encounter [facility] [address] [place] [phone] Nonrheumatic mitral valve regurgitation Discharge Disposition: Discharge to home or self care 03/19/2025 Results Follow-Up [facility] [address] [place] [address] Chandler Goldman MD Transthoracic Echo (TTE) Complete W Doppler/CF 03/09/2025 Telephone [facility] [address] [place] [address] Sarah Suárez RN 03/07/2025 Results Follow-Up [facility] [address] [place] [address] Chandler Goldman MD US Renal Limited Including Duplex Doppler Bilateral Complete (C) 03/05/2025 1:14 PM CDT - 03/05/2025 11:59 PM CDT Hospital Encounter [facility] ([facility]) [address] [place] [id number] Accelerated hypertension; Abdominal bruit Discharge Disposition: Discharge to home or self care 03/04/2025 Telephone [facility] [address] [place] [address] Chandler Goldman MD 02/26/2025 Telephone [facility] [address] [place] [address] Chandler Goldman MD 02/24/2025 11:30 AM CDT Office Visit [facility] [address] [place] [address] Chandler Goldman MD Accelerated hypertension (Primary Dx); White coat syndrome without diagnosis of hypertension; Abdominal bruit 02/22/2025 Telephone [facility] [address] [place] [address] Chandler Goldman MD 01/22/2025 2:59 PM CDT - 01/22/2025 11:59 PM CDT Hospital Encounter [facility] [address] [place] [address] [place] [address] Screening for osteoporosis; Post-menopausal Discharge Disposition: Discharge to home or self care from Last 3 Months Immunizations Immunization Administration Dates Next Due Flucelvax [...] Unspecified 01/15/2011 Sars-cov-2 Covid-19 Mrna, Bi valent, Original/omicron Ba.1, A 07/28/2023 Tdap 05/03/2023 ZOSTER Recombinant 10/16/2023,08/04/2023, 023 Surgical History Surgery Date Site/Laterality Comments KNEE ARTHROSCOPY Bilateral x 2, details lacking. Left 1980, cruciate ligament repair, right 1982, pinched synovial membrane. BIOPSY ABDOMEN RETROPERITONEAL 12/08/2015 N/A Right pelvic Schwannoma, no atypical or malignant features. ESOPHAGOGASTRODUODENOSCOPY OOPHERECTOMY 10/14/2011 - 10/13/2012 Left Benign cyst, Maxine Serrano MD BASAL CELL CARCINOMA EXCISION 04/13/2022 Right BASAL CELL CARCINOMA, SUPERFICIAL MULTIFOCAL, right medial lower leg. SKIN LESION EXCISION 04/13/2022 Right ACTINIC KERATOSIS, ERODED, right lateral lower leg. DEXA SCAN 12/21/2022 N/A Low bone mass. MAMMOGRAPHY 01/26/2023 Bilateral Negative, [facility]. BIOPSY ABDOMEN RETROPERITONEAL 10/14/2011 - 10/13/2012 Schwannoma COLONOSCOPY 02/15/2021 N/A Polyps removed, [facility]. Medical History Medical History Date Comments Cyst of ovary 2011 Ovarian cyst Anemia Microscopic hematuria 10/12/2008 Runner's h ematuria, resolved with lower mileage. Mitral valve disorder 09/15/2001 Had an ech o, had mitral valve prolapse, details lacking. Since then no one heard anything. 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 Patient is unaware of any such history. Verruca vulgaris 10/03/2011 Treated by her manager cardiac cath. Neoplasm of uncertain behavior of skin 2 Actinic keratosis, right lateral lower leg and basal cell carcinoma, right medial lower leg, both excised. Hypertension Osteopenia Upper respiratory infection 08/04/2024 Empi rically treated with Z-Gaston per patient request. Family History Medical History Relation Name Comments Parkinsonism Father Parkinson's dis ease; Osteoporosis Mother Osteoporosis; Ovarian cancer Mother Cancer, ovari an; Relation Name Status Comments Father Mother Social History Tobacco Use Types Packs/Day Years [...] on file Legal Sex Female 1:12 AM TESTING SHAKING SHIPPING Gender Identity Not on file Sexual Orientation Not on file Occupation Industry Job Start Date Job End Date [employer] Not on file Not on file Not on file Obstetrics History Last Filed Vital Signs Vital Sign Reading [...] 02/24/2025 11:22 AM CDT Plan of Treatment Health Maintenance Due Date Last Done Comments Colon Cancer Screening-Colonoscopy 1955 Breast Cancer Screening-Mammogram 01/27/2024 01/26/2023, 12/16/2021, 12/30/2020, Additional history exists Covid-19 Vaccine (2023-2 5 season) 2025 08/23/2024, 07/28/2023, 07/28/2023, Additional history exists Influenza Vaccine (#1) 2025 , 07/28/2023, 07/28/2023, Additional history exists Depression Screening 09/28/2025 09/28/2024, 09/25/2023, 05/03/2023, Additional history exists Fall Risk Assessment 09/28/2025 09/28/2024 Well Visit 65+ 10/21/2025 10/21/2024, 09/13, 10/18/2023, Additional history exists Osteoporosis Screening-Bone Density Scan 01/22/2027 01/22/2025, 12/21/2022, 12/16/2020, Additional history exists DTaP/Tdap/Td Vaccine (2 - Td or Tdap) 05/03/2033 05/03/2023 Hepatitis B Screening Completed 02/22/2012 , 08/31/2011, 01/15/2011 Pneumococcal vaccine 65+ Completed 05/03/2023 Zoster Vaccine Completed 10/16/2023, 07/15, 08/04/2023 Hepatitis C Screening Completed 10/02/2024 Procedures Procedure Name Priority Date/Time Associated Diagnosis [...] HEPATITIS C ANTIBODY Routine 10/02/2024 6:58 AM TESTING SHAKING SHIPPING Need for hepatitis C screening test HM MAMMOGRAPHY Routine 01/26/2023 from Last 3 Months or Most Recently Relevant to Health Maintenance Results * TRANSTHORACIC ECHO (TTE) COMPLETE W DOPPLER/CF WO CONTRAST (03/19/2025 7:54 AM CDT) EF Mod BP 64 % CONS SCIMAGE Anatomical Region Laterality Modality Ultrasound 03/19/2025 7:01 AM CDT Narrative 03/19/2025 8:22 AM CDT [facility] [place] [address] Transthoracic Echocardiographic Report Patient Name: GUNJAN RILEY K : 1955 (69y 3m) Gender: F Study Date: 03/19/2025 07:01:01 AM Ht(Inch): 64 Wt(Lb): 115.08 BSA: 1.54 Court Assistant: KAYDEN Flaherty RDCS Location: [facility] Order Provider: CHANDLER GOLDMAN Heart Rate: 69 [...] Note Zay Kidd MD PhD - 03/19/2025 [facility] [place] [address] Transthoracic Echocardiographic Report Patient Name: GUNJAN RILEY K : 1955 (69y 3m) Gender: F Study Date: 03/19/2025 07:01:01 AM Ht(Inch): 64 Wt(Lb): 115.08 BSA: 1.54 Court Assistant: Zachariah Guidry RDCS [facility]: [facility] Order Provider:CHANDLER GOLDMAN Heart Rate: 69 BMI: [...] [ 2.5 - 4.2 ] MV Decel Moru036.47 msec [ 104.00 - 258.00 ] TAPSE [...] hydronephrosis. Electronically signed by: Nena Naranjo M.D. us Chandler Goldman MD [facility] US PROCEDURES Final Resul t * Dexa Axial [...] at 95% confidence level Procedure Note Delon Julien DO - 01/22/2025 BONE DENSITOMETRY OF THE SPINE [...] it. Electronically signed by: Delon Julien DO Sonya Burns MD IMG DXA PROCEDURES Final Re sult * Hepatitis C antibody Blood (10/02/2024 6:58 AM TESTING SHAKING SHIPPING) Hep C Ab NON-REACTI VE NON-REACT TANA [facility] Comment: HCV antibody was non-reactive. There is no laboratory evidence of HCV infection. In most cases, no further action is required. However, if recent HCV exposure is suspected, a test for HCV RNA (test code 03865) is suggested. For additional information please refer to http://education.Tune Clout/faq/QBT13m8 (This link is being provided for informational/ educational purposes only.) Blood 10/02/2024 6:58 AM TESTING SHAKING SHIPPING 10/02/2024 6:59 AM TESTING SHAKING SHIPPING Narrative [facility] - 10/08/2024 12:36 PM TESTING SHAKING SHIPPING FASTING:YES FASTING: YES Chandler Goldman MD LAB MICROBIOLOGY - GENERAL OR DERABLES Final Result [facility] [address] [place] [address] * MAMMOGRAPHY (01/26/2023) Pathologist [facility] Mammography Normal Impressions Chandler Goldman MD - 01/26/2023 Negative, [facility]. Narrative Chandler Goldman MD - 01/26/2023 See scanned report. Sonya Burns MD HEALTH MAINTENANCE Final Re sult from Last 3 Months or Most Recently Relevant to Health Maintenance Insurance ANTHEM ACCESS BLUE ACCESS OOS BLUE ACCESS OOS e|tab OOS Care Teams Law Instructor Relationship Specialty Start Date End Date Chandler Goldman MD [address] [place] [address] PCP - General Internal Medicine 05/02/23 Sonya Burns MD [address] [address] Consulting Physician Obstetrics and Gynecology 09/25/13 Ericka Ibrahim MD [address] [address] Consulting Physician Dermatology 07/14/19"
--- OUTSIDE RECORDS SUMMARY | 2025-04-22 16:17 | XMS_ITS | Encounter Summary ---
Author Organization [facility] Address [address] [place] [place] [address] Care Team Providers Care Sales Representative Door To Door Name Role Phone Jass Wynn MD Primary Care Provider [phone] Niels Desai MD Primary Care Provider [phone] Encounter Details Date Type Department Care Team (Late st Contact Info) Description 11/13/2022 Telephone [facility] [address] [place] [address] Ericka Ibrahim MD [facility] DE[place] [id number] Social History Tobacco Use Types Packs/Day Years Used Date Smoking Tobacco: Never Smokeless Tobacco: Never Alcohol Use Standard Drinks/Week Comments Yes 0.8 (1 standard drink = 0.6 oz p ure alcohol) Comments Unknown Sex and Gender Information Value Date Recorded Sex Assigned at Not on file Legal Sex Female 6:00 PM AUTO BRAKE MECHANIC Gender Identity Not on file Sexual Orientation Not on file documented as of this encounter Miscellaneous Notes * Telephone Encounter - Tomasa Strong - 11/13/2022 4:14 PM CST Pt was called and left a detailed voicemail. Thank you, BRAKE MECHANIC * Telephone Encounter - Estrella Dwyer - 11/13/2022 1:04 PM CST Pt received a message cancelling her 6 month follow up to her last surgery. She needs to be scheduled at the [place] location. I [place] but [place] [facility] want [place] that location. She will also need a 1 year FBSE set up Pt contact number: [phone] BRAKE MECHANIC documented in this encounter Plan of Treatment Upcoming Encounters Date Type Department Care Team (Late st Contact Info) Description 07/05/2025 2:10 PM CDT Office Visit [facility] Dermatology [address] [place] [address], [place] [phone] Khloe Goode MD [address] [place] [address] [place] [phone] documented as of this encounter Visit Diagnoses Not on filedocumented in this encounter Care Teams Sales Representative Door To Door Relationship Specialty Start Date End Date Jass Wynn MD PCP - General 01/20/16 02/09/24 Niels Desai MD [address] [place] [phone] PCP - General Infectious Disease 02/10/24 documented as of this encounter
== END 2025-04-22 16:04 | disposition home or self-care (01) ==
LOC: ANHIMG 16:13
PROVIDERS: PCP Internal Medicine Infectious Disease; Visit Provider Obstetrics & Gynecology
DX: Z12.31 Encounter for screening mammogram for malignant neoplasm of breast (principal)
CPT/HCPCS: 77063; 77067